=== PATIENT | male | born 1945 | race Caucasian/White ===

== ENCOUNTER → 2023-09-30 | Outpatient (CLI) | payer MEDICARE ==
[2023-09-30 18:44] LABS: Basophils # (A) 0.06 X 10*3/uL (0.00-0.10); Basophils % (A) 0.9 %; Eosinophils # (A) 0.16 X 10*3/uL (0.04-0.35); Eosinophils % (A) 2.3 %; HCT 37.4 % (39.6-50.0); HGB 12.7 g/dL (13.0-17.0); Lymphocytes # (A) 1.38 X 10*3/uL (0.90-5.00); Lymphocytes % (A) 19.8 %; MCH 30.2 pg (27.0-32.0); Mean Platelet Volume 9.7 FL (9.5-12.2); Monocytes # (A) 0.64 X 10*3/uL (0.20-1.00); Monocytes % (A) 9.2 %; NRBC Per 100 WBC 0 X 10*3/uL (0.00-0.01); Neutrophils # (A) 4.72 X 10*3/uL (1.80-7.70); Neutrophils % (A) 67.5 %; Platelet Count 262 X 10*3/uL (140-440); WBC 6.98 X 10*3/uL (4.50-10.00)
[2023-09-30 19:32] LABS: Erythrocyte Sedimentation Rate 10 mm/Hr (0-20)
== END | disposition home or self-care (01) ==
LOC: LABWHC1 10:07
PROVIDERS: ATTEND Ophthalmology
DX: H34.8111 Central retinal vein occlusion, right eye, with retinal neovascularization (principal)
CPT/HCPCS: 36415; 85025; 85652

== ENCOUNTER → 2023-12-09 | Outpatient (CLI) | payer MEDICARE ==
--- NOTE | 2023-12-09 19:17 | US ---
EXAMINATION TYPE: US carotid duplex BILAT DATE OF EXAM: 12/09/2023 COMPARISON: NONE CLINICAL INDICATION: Male, 78 years old with history of I63.9 STROKE; Right visual disturbance TECHNIQUE: Carotid duplex ultrasound examination. Indirect Doppler criteria was utilized. FINDINGS: EXAM MEASUREMENTS: RIGHT: Peak Systolic Velocity (PSV) cm/sec ----- Right CCA: 106 ----- Right ICA: 141 ----- Right ECA: 152 ICA/CCA ratio: 1.33 RIGHT: End Diastole cm/sec ----- Right CCA: 18.0 ----- Right ICA: 15.4 ----- Right ECA: 15.6 LEFT: Peak Systolic Velocity (PSV) cm/sec ----- Left CCA: 115 ----- Left ICA: 141 ----- Left ECA: 155 ICA/CCA ratio: 1.23 LEFT: End Diastole cm/sec ----- Left CCA: 12.3 ----- Left ICA: 26.4 ----- Left ECA: 10.7 VERTEBRALS (direction of flow): Right Vertebral: Antegrade Left Vertebral: Antegrade Rhythm: Normal MACHINE SAND MIXER NOTES: Moderate plaque bilateral bifurcations. 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 Criteria for Assigning % of Stenosis / Diameter reduction (Estimation based on the indirect measurements of the internal carotid artery velocities (ICA PSV). 1. Normal (no stenosis)=ICA PSV < 125 cm/s: ratio < 2.0: ICA EDV<40 cm/s. 2. Less than 50% stenosis=ICA PSV < 125 cm/s: ratio < 2.0: ICA EDV<40 cm/s. 3. 50 to 69% stenosis=ICA PSV of 125 to 230 cm/s: ration 2.0 ? 4.0: ICA EDV 40-100 cm/s. 4. Greater than 70% stenosis to near occlusion= ICA PSV > 230 cm/s: ratio > 4.0: ICA EDV > 100 cm/s. 5. Near occlusion= ICA PSV velocities may be low or undetectable: variable ratio and ICA EDV. 6. Total occlusion=unable to detect flow.
== END | disposition home or self-care (01) ==
LOC: RADUSWWP 09:48
PROVIDERS: ATTEND Internal Medicine Geriatric Medicine
DX: I65.23 Occlusion and stenosis of bilateral carotid arteries (principal)
CPT/HCPCS: 93880

== ENCOUNTER 2024-06-22 08:56 | Inpatient (IN) | payer MEDICARE ==
[2024-06-22] MEDS: ASPIRIN 81 MG PO STA (09:28)
--- NOTE | 2024-06-22 09:29 | ED ---
General Adult HPI - General Chief complaint: Neuro Symptoms/Deficit Stated complaint: Poss Stroke Time Seen by Provider: 06/22/24 09:07 Source: patient Mode of arrival: ambulatory Limitations: no limitations - History of Present Illness Initial comments: Dictation was produced using Beta[employer] dictation software. please excuse any grammatical, word or spelling errors. Chief Complaint: 78-year-old male presents emergency department with strokelike symptoms History of Present Illness: Patient 78-year-old male presents with strokelike symptoms. He had sputtering symptoms since yesterday. Initially began in the morning however improved throughout the day. At 9 PM his symptoms recurred. States that he is having difficulty walking, slurred speech and right facial droop. 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 Denies any headache. No chest pain. No shortness of breath. The ROS documented in this emergency department record has been reviewed and confirmed by me. Those systems with pertinent positive or negative responses have been documented in the HPI. All other systems are other negative and/or noncontributory. - Related Data Home Medications Medication Instructions Recorded Confirmed Ascorbic Acid [Vitamin C] 500 mg PO DAILY 06/22/24 06/22/24 Aspirin EC [Ecotrin Low Dose] 81 mg PO DAILY 06/22/24 06/22/24 Montelukast [Singulair] 10 mg PO DAILY 06/22/24 06/22/24 Multivitamins, Thera [Multivitamin 1 tab PO DAILY 06/22/24 06/22/24 (formulary)] Rosuvastatin [Crestor] 20 mg PO DAILY 06/22/24 06/22/24 Vit C/E/Zn/Coppr/Lutein/Zeaxan 1 cap PO BID 06/22/24 06/22/24 [Preservision Areds 2 Softgel] Allergies Allergy/AdvReac Type Severity Reaction Status Date / Time No Known Allergies Allergy Verified 06/22/24 09:55 Review of Systems ROS Statement: Those systems with pertinent positive or pertinent negative responses have been documented in the HPI. ROS Other: All systems not noted in ROS Statement are negative. 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 Cardiovascular: Heart regular rate and rhythm Chest: Able to complete full sentences, no retractions, no tachypnea Abdomen: abdomen soft, non-tender, non-distended, no organomegaly Musculoskeletal: Pulses present and equal in all extremities, no peripheral edema Motor: no focal deficits noted Neurological: Flattening of the right nasolabial fold, slight word finding difficulties slurred speech. Drift to the right lower extremity Skin: Intact with no visualized rashes Psych: Normal affect and mood Limitations: no limitations Course Vital Signs 06/22/24 06/22/24 08:58 09:36 Temperature 97.6 F Pulse Rate 89 97 Respiratory 18 18 Rate Blood Pressure 152/80 118/88 O2 Sat by Pulse 97 96 Oximetry EKG Findings - EKG Comments: EKG Findings:: My EKG interpretation: Ventricular rate 86, sinus rhythm, TX 150, cures 93, QTc 386. No TX prolongation, no QTC prolongation, no ST or T-wave changes noted. Overall, this EKG is unremarkable Medical Decision Making - Medical Decision Making Was pt. sent in by a medical professional or institution (TONIA Polanco, DIGITAL ACCOUNT SUPERVISOR, urgent care, hospital, or snf...) When possible be specific @ -No Did you speak to anyone other than the patient for history (EMS, parent, family, police, friend...)? What history was obtained from this source @ -Some history obtained family at the bedside Did you review nursing and triage notes (agree or disagree)? Why? @ -I reviewed and agree with nursing and triage notes Were old charts reviewed (outside hosp., previous admission, EMS record, old EKG, old radiological studies, urgent care reports/EKG's, snf records)? Report findings @ -No old charts were reviewed Differential Diagnosis (chest pain, altered mental status, abdominal pain women, abdominal pain men, vaginal bleeding, musculoskeletal, weakness, fever, dyspnea, syncope, headache, dizziness, GI bleed, back pain, seizure, CVA, palpatations, mental health)? @ - Differential CVA: Ischemic stroke, hemorrhagic stroke, brain tumor, atypical migraine, Wernicke's encephalopathy, seizure, multiple sclerosis, meningitis, encephalitis, hypoglycemia, Guillain-Obrien, electrolytes disturbance, myasthenia gravis.... Th is is not meant to be an all-inclusive list EKG interpreted by me (3pts min.). @ -See above X-rays interpreted by me (1pt min.). @ -Chest x-ray is nonacute CT interpreted by me (1pt min.). @ -CT scan the brain shows no acute processes. CT angiography shows no large vessel occlusion U/S interpreted by me (1pt. min.). @ -None done What testing was considered but not performed or refused? (CT, X-rays, U/S, labs)? Why? @ -None What meds were considered but not given or refused? Why? @ -Thrombolytics were considered however patient outside the window for safe administration Was smoking cessation discussed for >3mins.? @ -No Were there social determinants of health that impacted care today? How? (Homelessness, low income, unemployed, alcoholism, drug addiction, transportation, low edu. Level, literacy, decrease access to med. care, custodial, rehab)? @ -No Was there de-escalation of care discussed even if they declined (Discuss DNR or withdrawal of care, Hospice)? DNR status @ -No What co-morbidities impacted this encounter? (DM, HTN, Smoking, COPD, CAD, Cancer, CVA, ARF, Chemo, Hep., AIDS, mental health diagnosis, sleep apnea, morbid obesity)? @ -History of atherosclerotic vascular disease Was patient admitted / discharged? Hospital course, mention meds given and route, prescriptions, significant lab abnormalities, going to OR and other pertinent info. @ -70-year-old male presents with acute strokelike symptoms. Patient outside the window for aggressive management. Vital signs are stable. Laboratory evaluation within acceptable limits. Imaging studies are negative. Symptoms are suggestive of CVA. Gave patient given aspirin will be admitted with consultation to neurology. Case discussed with hospitalist for admission Did you discuss the management of the patient with other professionals (professionals i.e. , PA, DIGITAL ACCOUNT SUPERVISOR, lab, RT, psych nurse, psychiatric social worker, child welfare specialist, teacher, community reinvestment act officer, heel caser)? Give summary @ -See above Was critical care preformed (if so, how long)? @ -No Undiagnosed new problem with uncertain prognosis? @ -No Drug Therapy requiring intensive monitoring for toxicity (Heparin, Nitro, Insulin, Cardizem)? @ -No Were any procedures done? @ -No Diagnosis/symptom? Acute, or Chronic, or Acute on Chronic? Uncomplicated (without systemic symptoms) or Complicated (systemic symptoms)? @ -CVA Side effects of treatment? @ -No Exacerbation, Progression, or Severe Exacerbation? @ -No Poses a threat to life or bodily function? How? (Chest pain, [place], [place], pneumonia, PE, COPD, DKA, ARF, appy, cholecystitis, CVA, Diverticulitis, Homicidal, Suicidal, threat to staff... and all critical care pts) @ -yes - Lab Data Result diagrams: 06/22/24 09:35 06/22/24 09:35 Lab Results 06/22/24 06/22/24 06/22/24 Range/Units 09:35 09:35 09:35 WBC 7.6 (3.8-10.6) k/uL RBC 4.68 (4.30-5.90) m/uL Hgb 14.3 (13.0-17.5) gm/dL Hct 43.7 (39.0-53.0) % MCV 93.5 (80.0-100.0) fL MCH 30.6 (25.0-35.0) pg MCHC 32.8 (31.0-37.0) g/dL RDW 13.6 (11.5-15.5) % Plt Count 299 (150-450) k/uL MPV 7.1 Neutrophils % 67 % Lymphocytes % 21 % Monocytes % 5 % Eosinophils % 5 % Basophils % 1 % Neutrophils # 5.0 (1.3-7.7) k/uL Lymphocytes # 1.6 (1.0-4.8) k/uL Monocytes # 0.4 (0-1.0) k/uL Eosinophils # 0.4 (0-0.7) k/uL Basophils # 0.0 (0-0.2) k/uL PT 10.7 (10.0-12.5) sec INR 1.0 (<1.2) APTT 23.7 (22.0-30.0) sec Sodium 141 (137-145) mmol/L Potassium 4.8 (3.5-5.1) mmol/L Chloride 108 H (98-107) mmol/L Carbon Dioxide 23 (22-30) mmol/L Anion Gap 10 mmol/L BUN 26 H (9-20) mg/dL Creatinine 1.33 H (0.66-1.25) mg/dL Est GFR (CKD-EPI)AfAm 59 (>60 ml/min/1.73 sqM) Est GFR (CKD-EPI)NonAf 51 (>60 ml/min/1.73 sqM) Glucose 101 H (74-99) mg/dL Calcium 9.6 (8.4-10.2) mg/dL Total Bilirubin 1.2 (0.2-1.3) mg/dL AST 32 (17-59) U/L ALT 24 (4-49) U/L Alkaline Phosphatase 59 (38-126) U/L Creatine Kinase 142 (55-170) U/L Troponin I (0.000-0.034) ng/mL Total Protein 7.6 (6.3-8.2) g/dL Albumin 4.7 (3.5-5.0) g/dL 06/22/24 Range/Units 09:35 WBC (3.8-10.6) k/uL RBC (4.30-5.90) m/uL Hgb (13.0-17.5) gm/dL Hct (39.0-53.0) % MCV (80.0-100.0) fL MCH (25.0-35.0) pg MCHC (31.0-37.0) g/dL RDW (11.5-15.5) % Plt Count (150-450) k/uL MPV Neutrophils % % Lymphocytes % % Monocytes % % Eosinophils % % Basophils % % Neutrophils # (1.3-7.7) k/uL Lymphocytes # (1.0-4.8) k/uL Monocytes # (0-1.0) k/uL Eosinophils # (0-0.7) k/uL Basophils # (0-0.2) k/uL PT (10.0-12.5) sec INR (<1.2) APTT (22.0-30.0) sec Sodium (137-145) mmol/L Potassium (3.5-5.1) mmol/L Chloride (98-107) mmol/L Carbon Dioxide (22-30) mmol/L Anion Gap mmol/L BUN (9-20) mg/dL Creatinine (0.66-1.25) mg/dL Est GFR (CKD-EPI)AfAm (>60 ml/min/1.73 sqM) Est GFR (CKD-EPI)NonAf (>60 ml/min/1.73 sqM) Glucose (74-99) mg/dL Calcium (8.4-10.2) mg/dL Total Bilirubin (0.2-1.3) mg/dL AST (17-59) U/L ALT (4-49) U/L Alkaline Phosphatase (38-126) U/L Creatine Kinase (55-170) U/L Troponin I <0.012 (0.000-0.034) ng/mL Total Protein (6.3-8.2) g/dL Albumin (3.5-5.0) g/dL Disposition Clinical Impression: Cerebrovascular accident (CVA) Disposition: ADMITTED IP TO THIS HOSP Condition: Fair Referrals: Anil Elizabeth MD [Primary Care Provider] - 1-2 days Decision Time: 11:43
[2024-06-22] MEDS: SODIUM CHLORIDE 0.9% 500 ML 500 ML IV STA (09:30)
[2024-06-22 09:40] LABS: Basophils % (A) 1 %; Eosinophils # (A) 0.4 k/uL (0-0.7); Eosinophils % (A) 5 %; HCT 43.7 % (39.0-53.0); HGB 14.3 gm/dL (13.0-17.5); Lymphocytes # (A) 1.6 k/uL (1.0-4.8); Lymphocytes % (A) 21 %; MCH 30.6 pg (25.0-35.0); MCHC 32.8 g/dL (31.0-37.0); MCV 93.5 fL (80.0-100.0); Mean Platelet Volume 7.1; Monocytes # (A) 0.4 k/uL (0-1.0); Monocytes % (A) 5 %; Neutrophils % (A) 67 %; Platelet Count 299 k/uL (150-450); RBC 4.68 m/uL (4.30-5.90); RDW 13.6 % (11.5-15.5); WBC 7.6 k/uL (3.8-10.6)
[2024-06-22 09:51] LABS: Partial Thromboplastin Time 23.7 sec (22.0-30.0); Prothrombin Time 10.7 sec (10.0-12.5)
[2024-06-22 09:52] LABS: ALT 24 U/L (4-49); African American GFR (CKD) 59 (>60 ml/min/1.73 sqM); Albumin 4.7 g/dL (3.5-5.0); Anion Gap 10 mmol/L; Blood Urea Nitrogen 26 mg/dL (9-20); Calcium 9.6 mg/dL (8.4-10.2); Carbon Dioxide 23 mmol/L (22-30); Chloride 108 mmol/L (98-107); Creatine Kinase 142 U/L (55-170); Glucose 101 mg/dL (74-99); Non-African American GFR(CKD) 51 (>60 ml/min/1.73 sqM); Sodium 141 mmol/L (137-145); Total Bilirubin 1.2 mg/dL (0.2-1.3); Total Protein 7.6 g/dL (6.3-8.2)
[2024-06-22 09:55] LABS: AST 32 U/L (17-59); Alkaline Phosphatase 59 U/L (38-126); Potassium 4.8 mmol/L (3.5-5.1)
--- NOTE | 2024-06-22 10:11 | CT ---
EXAMINATION TYPE: CT brain wo con CT DLP: 1227.4 mGycm, Automated exposure control for dose reduction was used. DATE OF EXAM: 06/22/2024 10:06 AM COMPARISON: None. CLINICAL INDICATION:Male, 78 years old with history of Neuro deficit, acute, stroke suspected, Slur[place] d speech since 06/21/2024 at 2100 TECHNIQUE: Brain: Multiple axial CT images of the brain were obtained without IV contrast. . Coronal and sagitta l reformats reviewed. FINDINGS: Brain: Extra-axial spaces: No abnormal extra-axial fluid collections. Ventricular system: Within normal limits Cerebral parenchyma: No acute intraparenchymal hemorrhage or mass effect. The carr-white junction is well differentiated. Scattered hypoattenuating areas are seen within the periventricular white matte r. Cerebellum: Unremarkable. Mass effect: No evidence of midline shift. Intracranial vasculature: Atherosclerotic calcifications of the intracranial vessels. Soft tissues: Normal. Calvarium/osseous structures: No depressed skull fracture. Paranasal sinuses and mastoid air cells: Mastoid air cells are clear. Mild mucosal thickening of the ethmoid sinuses. Visualized orbits: Senile calcific scleral plaques are present. IMPRESSION: 1. No acute intracranial process. 2. Nonspecific white matter changes, likely secondary to chronic small vessel ischemic disease. [facility], , 06/22/2024 10:09 AM
--- NOTE | 2024-06-22 10:53 | CT ---
EXAMINATION TYPE: CT angio head neck CT DLP: 1688.7 mGycm, Automated exposure control for dose reduction was used. DATE OF EXAM: 06/22/2024 10:34 AM COMPARISON: CT brain of same date. CLINICAL INDICATION:Male, 78 years old with history of Neuro deficit, acute, stroke suspected; PHH, N euro deficit, acute, stroke suspected TECHNIQUE: Axially acquired helical CT angiogram of the head and neck was obtained with contrast util izing 75 cc of Isovue-370 administered intravenously. Axial images are supplemented with 3D reconstru ctions which were post-processed at an independent workstation. NASCET criteria used. FINDINGS: CTA HEAD: No evidence of acute intracranial hemorrhage, mass effect, or midline shift. The ventricles, sulci, a nd cisterns are unremarkable. The visualized portions of the internal carotid arteries, middle cerebral arteries, anterior cerebral arteries, and posterior cerebral arteries are patent. origin of left LIVE GAMES DEALER. The basilar and vertebral arteries are patent. CTA NECK: Right Carotid System: The common carotid artery and external carotid artery are patent. Moderate calcified plaque at the ca rotid bifurcation extending into the proximal internal carotid artery. Approximately 50% stenosis sly ntified within the proximal internal carotid artery secondary to calcified plaque. The remaining por tions of the internal carotid artery demonstrate normal size without significant narrowing. Left Carotid System: The common carotid artery and external carotid artery are patent. The carotid bifurcation demonstrate s no evidence of hemodynamically significant stenosis. Mild calcified and noncalcified plaque within the carotid bifurcation and left proximal internal carotid artery. No significant stenosis. The remai servando portions of the internal carotid artery demonstrate normal size without significant narrowing. Vertebral arteries are patent without evidence hemodynamically significant stenosis. Left vertebral a rtery is dominant. There is a three-vessel aortic arch. The origins of the great vessels are patent. No evidence of hemo dynamically significant stenosis. IMPRESSION: 1. No evidence of dissection of the cervical internal carotid arteries or vertebral arteries. Approxi mately 50% stenosis within the proximal right internal carotid artery secondary to calcified plaque. No significant stenosis of the left internal carotid artery. 2. No evidence of high-grade stenosis or intracranial aneurysm. [facility], , 06/22/2024 10:50 AM
--- NOTE | 2024-06-22 11:17 | XR ---
EXAMINATION TYPE: XR chest 2V DATE OF EXAM: 06/22/2024 COMPARISON: None HISTORY: 78-year-old male confusion, altered mental status TECHNIQUE: AP and lateral views FINDINGS: Heart normal size. Aorta and pulmonary vasculature within normal limits. Opacity. No other consolidat ion or pleural effusion. Mild hyperinflation. IMPRESSION: COPD. Some focal medial right basilar atelectasis versus infiltrate. Correlate with symptoms. [facility], , 06/22/2024 11:15 AM
[2024-06-22] MEDS ORDERED: NALOXONE 0.4 MG/ML 1 ML VIAL IV PRN (11:40)
[2024-06-22] MEDS: SODIUM CHLORIDE 0.9% 1,000 ML IV SCH (12:06)
--- NOTE | 2024-06-22 15:59 | US ---
EXAMINATION TYPE: US carotid duplex BILAT DATE OF EXAM: 06/22/2024 COMPARISON: 12/09/2023 CLINICAL INDICATION: Male, 78 years old with history of CVA TECHNIQUE: Grayscale, color Doppler and spectral Doppler evaluation of the bilateral carotid systems and vertebral arteries. Indirect Doppler criteria was utilized. FINDINGS: EXAM MEASUREMENTS: RIGHT: Peak Systolic Velocity (PSV) cm/sec ----- Right CCA: 104 ----- Right ICA: 127 ----- Right ECA: 134 ICA/CCA ratio: 1.2 RIGHT: End Diastole cm/sec ----- Right CCA: 11 ----- Right ICA: 18.9 ----- Right ECA: 8.2 LEFT: Peak Systolic Velocity (PSV) cm/sec ----- Left CCA: 109 ----- Left ICA: 147 ----- Left ECA: 88.1 ICA/CCA ratio: 1.3 LEFT: End Diastole cm/sec ----- Left CCA: 17.2 ----- Left ICA: 26.3 ----- Left ECA: 0 VERTEBRALS (direction of flow): Right Vertebral: Antegrade Left Vertebral: Antegrade Rhythm: Normal FACTORY MAINTENANCE MANAGER NOTES: No significant stenosis seen There is mild to moderate atherosclerotic change at the bilateral carotid bifurcations. IMPRESSION: No hemodynamically significant internal carotid artery stenosis on either side. Criteria for Assigning % of Stenosis / Diameter reduction (Estimation based on the indirect measurements of the internal carotid artery velocities (ICA PSV). 1. Normal (no stenosis)=ICA PSV < 125 cm/s: ratio < 2.0: ICA EDV<40 cm/s. 2. Less than 50% stenosis=ICA PSV < 125 cm/s: ratio < 2.0: ICA EDV<40 cm/s. 3. 50 to 69% stenosis=ICA PSV of 125 to 230 cm/s: ration 2.0 ? 4.0: ICA EDV 40-100 cm/s. 4. Greater than 70% stenosis to near occlusion= ICA PSV > 230 cm/s: ratio > 4.0: ICA EDV > 100 cm/s. 5. Near occlusion= ICA PSV velocities may be low or undetectable: variable ratio and ICA EDV. 6. Total occlusion=unable to detect flow. [facility], , 06/22/2024 3:57 PM
[2024-06-22] MEDS: VIT A,C & E-LUTEIN-MINERALS 1 EACH TAB PO SCH (21:43)
--- NOTE | 2024-06-22 22:41 | P.HPIM ---
History of Present Illness H&P Date: 06/22/24 HISTORY OF PRESENT ILLNESS: 78-year-old with active medical history of hypertension, hyperlipidemia, BPH, previous history of TIA, history of mild PAD with left internal carotid stenosis in the past, history of chronic edema, chronic arthralgia and arthritis who has not been hospitalized for a long time but presented to the emergency department at [facility] today 06/22/2024 with strokelike symptoms apparently started the day before around 9:00 in the evening when he noticed to have slight weakness in the right leg more than the right upper extremity with slight droopy face and slurred speech with mild expressive aphasia he had difficulty walking at the time with the current symptoms he ignored until the morning today 06/22/2024 when he finally decided to come to the emergency department where was seen and evaluated continue to have significant weakness in the right side with mild slurred speech no confusion. At the time was seen his Glascow score was m ildly elevated but patient already passed the time for possible use tPA emergency decided to consult neurology admit patient to the hospital start Plavix and continue to control blood pressure, cholesterol, blood sugar and do neuroexam neurocheck regularly will need an MRI of the brain more specification of the area of the stroke is initially CAT scan of the brain did not show any area of concern but nonspecific white matter changes secondary to chronic small vessel ischemic change. EKG showed sinus rhythm with nonspecific ST depression with pulse running at 86 bpm with no sign of A-fib, CT angiogram of the neck shows no evidence of dissection of the cervical internal carotid artery or vert ebral artery approximately 50% blockage along the right proximal internal carotid secondary to calcification plaque. Atheroma no finding consistent with intracranial aneurysm at this point. Patient be hospitalized, will consult neurology, MRI of the brain, neuroexam every 2 hours and try to control blood pressure blood sugar along closely very well. REVIEW OF SYSTEMS: CONSTITUTIONAL: Well-developed no acute respiratory distress. EYES: No icterus sclerae, no conjunctivitis. Slightly droopy face to the right side. EARS, NOSE, MOUTH, THROAT, and FACE: No sore throat, lymphadenopathy, carotid bruits or deformity. RESPIRATORY: No SOB cough or wheezes. CARDIOVASCULAR: No CP, Palpitation, PND, Orthopnea, or angina. GASTROINTESTINAL: No Abd pain, Nausea or vomiting, no Diarrhea or constipation, No GI Bleed, no distention or masses. GENITOURINARY: Negative for Hematuria or UTI, no kidney stones. Mild BPH symptoms with incontinence. INTEGUMENT/BREAST: Negative for any muscular injury with mild osteoarthritis.. HEMATOLOGIC/LYMPHATIC: Negative for bleed or purpura. MUSCULOSKELTAL: Negative for Myalgia or arthralgia. NEURLOGICAL: No LOC, Sz or syncope, blurred vision dizziness or abnormality.. Positive weakness in the right side with slight droopy face and slurred speech. BEHAVIORAL/PSYCH: Negative. ENDOCRINE: Negative. PHYSICAL EXAMINATION: General Appearance: Alert, cooperative, no distress, appears stated age. Neck HEENT: Supple, no lymphadenopathy, no thyroid enlargement, no carotid bruits. Lungs: Clear to auscultation without crackles or wheezes no rhonchi, no deformity. Chest Wall: Chest wall normal expansion with deep inspiration no tenderness and no deformity was found on exam, no costochondral pain or discomfort. Heart: Regular rate and rhythm, S1, S2 normal, no murmur, rub or gallop. Back: Symmetric, no curvature, ROM normal, no CVA tenderness. Abdomen: Soft, non-tender, bowel sounds active all four quadrants, no masses, no organomegaly. Extremities: Extremities normal, atraumatic, no cyanosis or edema. Pulses: 2+ and symmetric. Skin: Skin color, texture, tugor normal, no rashes or lesions. Neurologic: Alert oriented with no confusion, cranial nerve II to XII intact with slight droopy face to the right side. Slight lack of sensation and right- sided weakness in the right leg compared to the left side significant weakness in the right upper extremity compared to left side as well. ASSESSMENT AND PLAN: _Acute/subacute stroke not able to find the time of CAT scan of the brain, MRI of the brain will be ordered also patient seen neurology, carotid ultrasound and echocardiogram to exclude any possibility atrial septal defect, thrombus in the mitral valve or any other abnormality can explain the symptoms. _Severe weakness in the right side from stroke CAT scan is not a clear patient major event will refer patient to see neurology and patient be going for an MRI of the brain. _Hyperlipidemia: Back on atorvastatin 40 mg a day. _Hypertension: Blood pressure is mildly elevated was not on any medication and an outpatient will consider to add smaller dose of ARB. _Carotid stenosis especially the right side is still plaque of cholesterol around 50 percentile does not require any intervention but conservative management. _BPH: To avoid any urinary retention patient might require alpha-brian. _Abnormal balance and gait: Will require PT and OT to improve his mobility fast. _GI prophylaxis: Patient be on pantoprazole 40 mg a day. _DVT prophylaxis: Early mobilization knee-high ABISAI hose on subcutaneous Lovenox to be done. CODE STATUS: Full code. Admit patient to the inpatient service for more than 2 night stay. Past Medical History Past Medical History: Hyperlipidemia Additional Past Medical History / Comment(s): 69% blockage in ICA, Past Surgical History: Hernia Repair Past Psychological History: No Psychological Hx Reported Smoking Status: Never smoker Past Alcohol Use History: None Reported Past Drug Use History: None Reported Medications and Allergies Home Medications Medication Instructions Recorded Confirmed Type Ascorbic Acid [Vitamin C] 500 mg PO DAILY 06/22/24 06/22/24 History Aspirin EC [Ecotrin Low Dose] 81 mg PO DAILY 06/22/24 06/22/24 History Montelukast [Singulair] 10 mg PO DAILY 06/22/24 06/22/24 History Multivitamins, Thera [Multivitamin 1 tab PO DAILY 06/22/24 06/22/24 History (formulary)] Rosuvastatin [Crestor] 20 mg PO DAILY 06/22/24 06/22/24 History Vit C/E/Zn/Coppr/Lutein/Zeaxan 1 cap PO BID 06/22/24 06/22/24 History [Preservision Areds 2 Softgel] Allergies Allergy/AdvReac Type Severity Reaction Status Date / Time No Known Allergies Allergy Verified 06/22/24 09:55 Physical Exam Vitals: Vital Signs Temp Pulse Resp BP Pulse Ox 06/22/24 12:50 93 18 131/72 98 06/22/24 12:04 87 18 126/70 97 06/22/24 12:00 86 16 129/82 96 06/22/24 11:00 85 11 L 121/74 96 06/22/24 09:36 97 18 118/88 96 06/22/24 08:58 97.6 F 89 18 152/80 97 Intake and Output 06/21/24 06/22/24 06/22/24 22:59 06:59 14:59 Other: Weight 85.82 kg Results CBC & Chem 7: 06/22/24 09:35 06/22/24 09:35 Labs: Abnormal Lab Results - Last 24 Hours (Table) 06/22/24 Range/Units 09:35 Chloride 108 H (98-107) mmol/L BUN 26 H (9-20) mg/dL Creatinine 1.33 H (0.66-1.25) mg/dL Glucose 101 H (74-99) mg/dL
[2024-06-23 07:01] LABS: HCT 38.3 % (39.0-53.0); HGB 12.7 gm/dL (13.0-17.5); MCH 31.1 pg (25.0-35.0); MCV 94.3 fL (80.0-100.0); Mean Platelet Volume 6.8; Platelet Count 278 k/uL (150-450); RBC 4.06 m/uL (4.30-5.90); RDW 13.5 % (11.5-15.5); WBC 7.1 k/uL (3.8-10.6)
[2024-06-23 07:13] LABS: ALT 18 U/L (4-49); AST 21 U/L (17-59); African American GFR (CKD) 62 (>60 ml/min/1.73 sqM); Albumin 3.7 g/dL (3.5-5.0); Alkaline Phosphatase 54 U/L (38-126); Anion Gap 5 mmol/L; Blood Urea Nitrogen 20 mg/dL (9-20); Calcium 9.1 mg/dL (8.4-10.2); Carbon Dioxide 26 mmol/L (22-30); Chloride 110 mmol/L (98-107); Glucose 88 mg/dL (74-99); Non-African American GFR(CKD) 54 (>60 ml/min/1.73 sqM); Potassium 4.5 mmol/L (3.5-5.1); Sodium 141 mmol/L (137-145); Total Bilirubin 0.8 mg/dL (0.2-1.3)
[2024-06-23] MEDS: ASCORBIC ACID 500 MG TAB PO SCH (08:54)
[2024-06-23] MEDS: ATORVASTATIN 40 MG TAB PO SCH (08:55)
[2024-06-23] MEDS: ASPIRIN 81 MG PO SCH (08:55)
[2024-06-23] MEDS: MONTELUKAST 10 MG TAB PO SCH (08:55)
[2024-06-23] MEDS: MULTIVITAMINS, THERA 1 EACH TAB PO SCH (08:55)
[2024-06-23] MEDS: CLOPIDOGREL 75 MG TAB PO SCH (08:55)
--- NOTE | 2024-06-23 12:54 | CA ---
Transthoracic Echo Report Name: Aristides Weldon Age: 79 Gender: M : 1945 Exam Date: 06/23/2024 10:17 Exam Location: [facility] Ht (in): 70 Wt (lb): 189 Ordering Physician: Anil Elizabeth MD Attending/Referring Phys: [employer] Marylou Saldivar RDCS Procedure CPT: Indications: lvfunction Cardiac Hx: Technical Quality: Fair Contrast 1: Total Dose (mL): Contrast 2: Total Dose (mL): MEASUREMENTS (Male / Female) Normal Values 2D ECHO LV Diastolic Diameter PLAX 5.0 cm 4.2 - 5.9 / 3.9 - 5.3 cm LV Systolic Diameter PLAX 3.5 cm IVS Diastolic Thickness 0.9 cm 0.6 - 1.0 / 0.6 - 0.9 cm LVPW Diastolic Thickness 1.0 cm 0.6 - 1.0 / 0.6 - 0.9 cm LV Relative Wall Thickness 0.4 LVOT Diameter 2.2 cm LV Diastolic Volume MOD BP 125.7 cm??? 67 - 155 / 56 - 104 cm??? LV Systolic Volume MOD BP 50.0 cm??? 22 - 58 / 19 - 49 cm??? LV Ejection Fraction MOD BP 60.3 % >= 55 % LV Cardiac Index MOD BP 2888.9 cm???/min???m??? LV Diastolic Volume MOD 4C 138.8 cm??? LV Systolic Volume MOD 4C 49.9 cm??? LV Ejection Fraction MOD 4C 64.1 % LV Cardiac Index MOD 4C 3388.5 cm???/min???m??? LV Diastolic Length 4C 8.2 cm LV Systolic Length 4C 6.0 cm LV Diastolic Volume MOD 2C 113.5 cm??? LV Systolic Volume MOD 2C 48.7 cm??? LV Ejection Fraction MOD 2C 57.1 % LV Cardiac Index MOD 2C 2470.8 cm???/min???m??? LV Diastolic Length 2C 8.2 cm LV Systolic Length 2C 6.2 cm LA Volume 53.9 cm??? 18 - 58 / 22 - 52 cm??? LA Volume Index 26.0 cm???/m??? 16 - 28 cm???/m??? Ascending Aorta Diameter 3.7 cm DOPPLER AV Peak Velocity 132.0 cm/s AV Peak Gradient 7.0 mmHg AV Mean Velocity 92.1 cm/s AV Mean Gradient 3.8 mmHg AV Velocity Time Integral 26.1 cm LVOT Peak Velocity 105.1 cm/s LVOT Peak Gradient 4.4 mmHg LVOT Velocity Time Integral 22.4 cm LVOT Stroke Volume 82.2 cm??? LVOT Stroke Volume Index 40.3 ml/m??? LVOT Cardiac Index 3132.2 cm???/min???m??? AV Area Cont Eq vti 3.1 cm??? AV Area Cont Eq pk 2.9 cm??? MV Area PHT 3.5 cm??? Mitral E Point Velocity 38.6 cm/s Mitral A Point Velocity 73.2 cm/s Mitral E to A Ratio 0.5 MV Deceleration Time 213.8 ms PV Peak Velocity 81.8 cm/s PV Peak Gradient 2.7 mmHg FINDINGS Left Ventricle Left ventricular ejection fraction is estimated at 55-60 %. Left ventricular cavity size normal. Left ventricular wall thickness normal. No obvious regional wall motion abnormalities. Right Ventricle Normal right ventricular size with normal function. Unable to estimate the right ventricular systolic pressure. Right Atrium Normal right atrial size. Left Atrium Normal left atrial size. Mitral Valve Structurally normal mitral valve. No evidence for mitral valve prolapse. No mitral stenosis. Trace mitral regurgitation. Aortic Valve Trileaflet aortic valve. No aortic stenosis. Trace aortic regurgitation. Tricuspid Valve Structurally normal tricuspid valve. No tricuspid stenosis. Trace tricuspid regurgitation. Pulmonic Valve Structurally normal pulmonic valve. No pulmonic stenosis. No pulmonic regurgitation. Pericardium No pericardial effusion. Prominent epicardial fat. Aorta Normal size aortic root and proximal ascending aorta. CONCLUSIONS Normal LV size and systolic function. Minimal mitral and tricuspid regurgitation. Trivial aortic insufficiency. No pericardial effusion. Probable fat pad. No pulmonary hypertension Previewed by: Dr. Veronica Pascual MD (Electronically Signed) Final Date: 23 June 2024 12:53
--- NOTE | 2024-06-23 16:10 | P.CNNES ---
History of Present Illness Consult date: 06/23/24 Requesting physician: Hira Mclean Reason for Consult: stroke symptoms History of Present Illness: This is a 79-year-old gentleman who presented emergency department on 06/22/2024 because of slurred speech off balance with right leg weakness. Patient stated that his symptoms began at nighttime on 06/21/2024 resolved did happen again further overnight. Speech is continues to be slurred. He is on aspirin 81 mg as well as statin. He states that he was told he had a stroke that affected the vision over the right eye affecting the right retinal artery unsure of the timeframe that this happened but thinks maybe 12 months ago but he does not recall he had any symptoms but when he followed up with the rib sawyer he was told that the retinal artery on the right eye was affected. Denies any history of A-fib. Some of the workup during this hospital visit consisted of: Creatinine is 1.33. I reviewed the rest of the lab workup CT of the head is reported as no acute intracranial process. Nonspecific white matter changes, likely secondary due to chronic small vessel ischemic disease. I personally reviewed the CT and I agree with the report CT angiography of the head and neck is reported as no evidence of dissection of cervical internal carotid artery or vertebral artery. Approximately 50% stenosi s within the proximal right internal carotid artery secondary due to calcified plaque. No significant stenosis of the left internal carotid artery. No evidence of high-grade stenosis or intracranial aneurysm Carotid duplex is reported as no hemodynamically significant internal carotid artery stenosis on either side. 2D echo was reported as normal left ventricular size and systolic function. Min imal mitral and tricuspid regurgitation. Trivial aortic insufficiency. No pericardial effusion. Probable fat pad. No pulmonary hypertension Review of Systems The positive and negative as per HPI. Past Medical History Past Medical History: Hyperlipidemia Additional Past Medical History / Comment(s): 69% blockage in ICA, Past Surgical History: Hernia Repair Past Psychological History: No Psychological Hx Reported Smoking Status: Never smoker Past Alcohol Use History: None Reported Past Drug Use History: None Reported Medications and Allergies Home Medications Medication Instructions Recorded Confirmed Type Ascorbic Acid [Vitamin C] 500 mg PO DAILY 06/22/24 06/22/24 History Aspirin EC [Ecotrin Low Dose] 81 mg PO DAILY 06/22/24 06/22/24 History Montelukast [Singulair] 10 mg PO DAILY 06/22/24 06/22/24 History Multivitamins, Thera [Multivitamin 1 tab PO DAILY 06/22/24 06/22/24 History (formulary)] Rosuvastatin [Crestor] 20 mg PO DAILY 06/22/24 06/22/24 History Vit C/E/Zn/Coppr/Lutein/Zeaxan 1 cap PO BID 06/22/24 06/22/24 History [Preservision Areds 2 Softgel] Allergies Allergy/AdvReac Type Severity Reaction Status Date / Time No Known Allergies Allergy Verified 06/22/24 09:55 Physical Examination - Vital Signs Vital Signs: Vital Signs Temp Pulse Resp BP Pulse Ox 06/23/24 14:10 97.8 F 88 16 131/93 97 06/23/24 09:00 97.4 F L 82 18 153/87 95 06/23/24 06:45 70 18 124/73 97 06/23/24 05:07 64 18 134/72 94 L 06/23/24 01:00 68 18 142/81 95 06/22/24 23:31 69 18 133/69 96 06/22/24 21:30 98.3 F 71 15 138/74 94 L 06/22/24 18:42 96 18 147/87 99 06/22/24 18:00 76 18 129/84 96 06/22/24 17:00 80 15 133/73 94 L 06/22/24 16:00 77 14 133/85 97 Intake and Output 06/23/24 06/23/24 06/23/24 06:59 14:59 22:59 Intake Total 0 Balance 0 Intake: Intake, IV Titration 0 Amount Sodium Chloride 0.9% 1, 0 000 ml @ 20 mls/hr IV . Q24H [facility] Rx#:[id number] Oral 0 Tube Feeding 0 Blood Product 0 Other: # Voids 2 GENERAL: The patient is lying in bed and is not in acute distress. NEUROLOGICAL: Higher mental function: The patient is awake, alert, oriented to self, place and time. Patient is following commands. No aphasia and no neglect. Cranial nerves: The pupils are round, equal and reactive to light and accommodation. Visual howe are full to confrontation throughout. Extraocular movement is intact no nystagmus is noted. Facial sensation is normal to touch throughout. The facial strength is normal throughout. Hearing is severely decreased bilaterally to hand rub (has hearing aid). Tongue is midline and moved [id number] without any difficulty. Mild dysarthria is noted. Shoulder shrug is normal bilaterally. Motor: The strength is right knee extension is 4+ to 5-. Otherwise 5 over 5 throughout. Normal tone and bulk. Cerebellum: Normal finger to nose bilaterally. Sensation: Sensation is normal to touch throughout. Reflexes (right/left): 2+ in uppers while lowers are 1+. Plantars are downgoing bilaterally. Results - Laboratory Findings CBC and BMP: 06/23/24 06:13 06/23/24 06:13 Abnormal Lab Findings: Abnormal Labs 06/22/24 06/23/24 06/23/24 09:35 06:13 06:13 RBC 4.06 L Hgb 12.7 L Hct 38.3 L Chloride 108 H 110 H BUN 26 H Creatinine 1.33 H 1.26 H Glucose 101 H Total Protein 6.0 L Assessment and Plan Assessment: This is a 79-year-old gentleman who presents to the emergency department on 06/22/2024 because of dysarthria, unsteady gait, right leg weakness. Patient stated that his symptoms began on 06/21/2024 at nighttime and it was brief then he had further episode. On examination he continues to have dysarthria and minimal right leg weakness. 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 Plan: Patient is resumed on his home dose of aspirin 81 mg daily. He was given aspirin 324 mg once in the ED. He was also started on Plavix 75 mg by the primary team. Patient is on Lipitor 40 mg nightly. Pending MRI of the brain. Continue neurochecks Cardiac monitoring PT OT and DIGITAL PRINTER are consulted Recommend permissive hypertensive for 24 hours Will defer the rest of the medical management to primary and other specialist For DVT prophylaxis I started the patient on subcu heparin 5000 units every 12 hours Discussed with the patient. Thank you for the consultation. Time with Patient: Greater than 30
--- NOTE | 2024-06-23 16:54 | MR ---
EXAMINATION TYPE: MR brain wo/w con DATE OF EXAM: 06/23/2024 4:46 PM CLINICAL INDICATION: Male, 79 years old with history of CVA; COMPARISON: CT brain 06/22/2024 TECHNIQUE: Multi planar, multi sequence imaging was performed through the brain including: T1, T2, In version recovery, susceptibility weighted imaging and gradient echo imaging and Diffusion weighted im aging. The patient was then given intravenous contrast and multi planar, T1 fat-saturation images wer e obtained. IV Contrast: 8.5 cc Gadavist FINDINGS: Restricted diffusion within the left mcdaniel radiata and left basal ganglia. The carr-white junctions, ventricular system, basal cisterns appear unremarkable. Diffusion-weighted imaging shows no evidence of restricted diffusion to suggest acute/subacute infarct. Intracranial ar terial flow voids are maintained. Midline structures show no abnormality. Scattered foci of high T2 s ignal intensity are seen within the periventricular white matter. The susceptibility weighted images do not reveal any evidence for micro-hemorrhage. After administration of gadolinium, no abnormal enha ncement is seen. The bone marrow signal is within normal limits. Paranasal sinuses and mastoid air cells: No significant paranasal sinus disease. Trace high T2 signal in the left mastoid air cells. Visualized orbits: Orbital contents are intact. IMPRESSION: 1. Acute/subacute CVA involving the left basal ganglia and left mcdaniel radiata. 2. Nonspecific white matter changes, likely related to small vessel ischemic disease. 3. Trace left mastoid air cell effusions. [facility], , 06/23/2024 4:52 PM
[2024-06-23] MEDS: HEPARIN SODIUM,PORCINE 5,000 UNIT/ML 1 ML VIAL SQ SCH (20:10)
--- NOTE | 2024-06-23 21:02 | P.PN ---
Subjective Progress Note Date: 06/23/24 HISTORY OF PRESENT ILLNESS: 78-year-old with active medical history of hypertension, hyperlipidemia, BPH, previous history of TIA, history of mild PAD with left internal carotid stenosis in the past, history of chronic edema, chronic arthralgia and arthritis who has not been hospitalized for a long time but presented to the emergency department at [facility] today 06/22/2024 with strokelike symptoms apparently started the day before around 9:00 in the evening when he noticed to have slight weakness in the right leg more than the right upper extremity with slight droopy face and slurred speech with mild expressive aphasia he had difficulty walking at the time with the current symptoms he ignored until the morning today 06/22/2024 when he finally decided to come to the emergency department where was seen and evaluated continue to have significant weakness in the right side with mild slurred speech no confusion. At the time was seen his Glascow score was mildly elevated but patient already passed the time for possible use tPA emergency decided to consult neurology admit patient to the hospital start Plavix and continue to control blood pressure, cholesterol, blood sugar and do neuroexam neurocheck regularly will need an MRI of the brain more specification of the area of the stroke is initially CAT scan of the brain did not show any area of concern but nonspecific white matter changes secondary to chronic small vessel ischemic change. EKG showed sinus rhythm with nonspecific ST depression with pulse running at 86 bpm with no sign of A-fib, CT angiogram of the neck shows no evidence of dissection of the cervical internal carotid artery or vertebral artery approximately 50% blockage along the right proximal internal carotid secondary to calcification plaque. Atheroma no finding consistent with intracranial aneurysm at this point. Patient be hospitalized, will consult neurology, MRI of the brain, neuroexam every 2 hours and try to control blood pressure blood sugar along closely very well. 06/23/2024: Continue to have significant weakness in the right side, rest of distress including carotid ultrasound came back his echocardiogram still pending and schedule an MRI of the brain at this point, has not seen neurology yet continue to watch his neuroexam carefully, continue to watch patient on heart monitor and so far did not show any sign of A-fib. Vitals are stable blood pressure running around 134/72 with pulse and 90 pulse oximetry on room air 94 percentile. He still have slight slurred speech but slight improvement compared to yesterday as for the upper extremities but stronger but the lower extremity still weaker. REVIEW OF SYSTEMS: CONSTITUTIONAL: Well-developed no acute respiratory distress. EYES: No icterus sclerae, no conjunctivitis. Slightly droopy face to the right side. EARS, NOSE, MOUTH, THROAT, and FACE: No sore throat, lymphadenopathy, carotid bruits or deformity. RESPIRATORY: No SOB cough or wheezes. CARDIOVASCULAR: No CP, Palpitation, PND, Orthopnea, or angina. GASTROINTESTINAL: No Abd pain, Nausea or vomiting, no Diarrhea or constipation, No GI Bleed, no distention or masses. GENITOURINARY: Negative for Hematuria or UTI, no kidney stones. Mild BPH symptoms with incontinence. INTEGUMENT/BREAST: Negative for any muscular injury with mild osteoarthritis.. HEMATOLOGIC/LYMPHATIC: Negative for bleed or purpura. MUSCULOSKELTAL: Negative for Myalgia or arthralgia. NEURLOGICAL: No LOC, Sz or syncope, blurred vision dizziness or abnormality.. Positive weakness in the right side with slight droopy face and slurred speech. BEHAVIORAL/PSYCH: Negative. ENDOCRINE: Negative. PHYSICAL EXAMINATION: General Appearance: Alert, cooperative, no distress, appears stated age. Neck HEENT: Supple, no lymphadenopathy, no thyroid enlargement, no carotid bruits. Lungs: Clear to auscultation without crackles or wheezes no rhonchi, no deformity. Chest Wall: Chest wall normal expansion with deep inspiration no tenderness and no deformity was found on exam, no costochondral pain or discomfort. Heart: Regular rate and rhythm, S1, S2 normal, no murmur, rub or gallop. Back: Symmetric, no curvature, ROM normal, no CVA tenderness. Abdomen: Soft, non-tender, bowel sounds active all four quadrants, no masses, no organomegaly. Extremities: Extremities normal, atraumatic, no cyanosis or edema. Pulses: 2+ and symmetric. Skin: Skin color, texture, tugor normal, no rashes or lesions. Neurologic: Alert oriented with no confusion, cranial nerve II to XII intact with slight droopy face to the right side. Slight lack of sensation and right- sided weakness in the right leg compared to the left side significant weakness in the right upper extremity compared to left side as well. ASSESSMENT AND PLAN: _Acute/subacute stroke not able to find the time of CAT scan of the brain, MRI of the brain will be ordered also patient seen neurology, carotid ultrasound and echocardiogram to exclude any possibility atrial septal defect, thrombus in the mitral valve or any other abnormality can explain the symptoms. _Severe weakness in the right side from stroke CAT scan is not a clear patient major event will refer patient to see neurology and patient be going for an MRI of the brain. _Hyperlipidemia: Back on atorvastatin 40 mg a day. _Hypertension: Blood pressure is mildly elevated was not on any medication and an outpatient will consider to add smaller dose of ARB. _Carotid stenosis especially the right side is still plaque of cholesterol around 50 percentile does not require any intervention but conservative management. _BPH: To avoid any urinary retention patient might require alpha-brian. _Abnormal balance and gait: Will require PT and OT to improve his mobility fast. _GI prophylaxis: Patient be on pantoprazole 40 mg a day. Objective - Vital Signs Vital signs: Vital Signs Temp 98.3 F 06/22/24 21:30 Pulse 64 06/23/24 05:07 Resp 18 06/23/24 05:07 BP 134/72 06/23/24 05:07 Pulse Ox 94 L 06/23/24 05:07 FiO2 Intake & Output 06/22/24 06/22/24 06/23/24 06:59 18:59 06:59 Output Total 175 Balance -175 Weight 85.82 kg Output: Urine 175 Other: # Voids 3 - Labs CBC & Chem 7: 06/22/24 09:35 06/22/24 09:35 Labs: Abnormal Lab Results - Last 24 Hours (Table) 06/22/24 Range/Units 09:35 Chloride 108 H (98-107) mmol/L BUN 26 H (9-20) mg/dL Creatinine 1.33 H (0.66-1.25) mg/dL Glucose 101 H (74-99) mg/dL
[2024-06-24] MEDS: hydrALAZINE HCL 25 MG TAB PO PRN (05:59)
[2024-06-24] MEDS: LOSARTAN 50 MG TAB PO SCH (09:26)
--- NOTE | 2024-06-24 14:47 | P.PN ---
Subjective Progress Note Date: 06/24/24 I am following-up with patient and he states he continues to have mild dysarthria but otherwise weakness has resolved. Denies new neurological issues. Objective - Vital Signs Vital signs: Vital Signs Temp 97.7 F 06/24/24 12:00 Pulse 83 06/24/24 12:00 Resp 16 06/24/24 12:00 BP 153/74 06/24/24 12:00 Pulse Ox 98 06/24/24 12:00 FiO2 Intake & Output 06/23/24 06/24/24 06/24/24 18:59 06:59 18:59 Intake Total 0 120 Balance 0 120 Weight 85.82 kg 86.2 kg Intake: Oral 0 120 Other: Voiding Method Toilet Toilet # Voids 2 2 2 - Exam GENERAL: The patient is and is not in acute distress. NEUROLOGICAL: Higher mental function: The patient is awake, alert, oriented to self, place and time. Patient is following commands. No aphasia and no neglect. Cranial nerves: The pupils are round, equal and reactive to light and accommodation. Visual howe are full to confrontation throughout. Extraocular movement is intact no nystagmus is noted. Facial sensation is normal to touch throughout. The facial strength is normal throughout. Hearing is severely decreased bilaterally to hand rub (has hearing aid). Tongue is midline and moved [id number] without any difficulty. Mild dysarthria is noted. Shoulder shrug is normal bilaterally. Motor: The strength is 5 over 5 throughout. Normal tone and bulk. Cerebellum: Normal finger to nose bilaterally. Sensation: Sensation is normal to touch throughout. Reflexes (right/left): 2+ in uppers while lowers are 1+. Plantars are downgoing bilaterally. Some of the workup during this hospital visit consisted of: CT of the head is reported as no acute intracranial process. Nonspecific white matter changes, likely secondary due to chronic small vessel ischemic disease. I personally reviewed the CT and I agree with the report CT angiography of the head and neck is reported as no evidence of dissection of cervical internal carotid artery or vertebral artery. Approximately 50% stenos is within the proximal right internal carotid artery secondary due to calcified plaque. No significant stenosis of the left internal carotid artery. No evidence of high-grade stenosis or intracranial aneurysm Carotid duplex is reported as no hemodynamically significant internal carotid artery stenosis on either side. 2D echo was reported as normal left ventricular size and systolic function. Mi nimal mitral and tricuspid regurgitation. Trivial aortic insufficiency. No pericardial effusion. Probable fat pad. No pulmonary hypertension MRI Brain: Acute/subacute CVA involving the left basal ganglia and mcdaniel radiata. White matter changes, likely related to small vessel ischemic disease 2D echo: Normal left ventricular size and systolic function. Minimal mitral and tricuspid regurgitation. Trivial aortic insufficiency. No pericardial effusion. Probable fat pad. No pulmonary hypertension. - Labs CBC & Chem 7: 06/23/24 06:13 06/23/24 06:13 Assessment and Plan Assessment: This is a 79-year-old gentleman who presents to the emergency department on 06/22/2024 because of dysarthria, unsteady gait, right leg weakness. Patient stated that his symptoms began on 06/21/2024 at nighttime and it was brief then he had further episode. On examination he continues to have dysarthria and minimal right leg weakness. Acute/subacute CVA involving the left basal ganglia and mcdaniel radiata: Etiology of stroke due to chronic small vessel disease from risk factors (age, HTN, hyperlipidemia). History of retinal artery occlusion over the right eye about possibly 12 months ago may be a more Hypertension Hyperlipidemia Benign prostate hyperplasia. Plan: Patient is resumed on his home dose of aspirin 81 mg daily. He was also started on Plavix 75 mg by the primary team. Continue dual antiplatelet for 21 days and after 21 days stop aspirin since he failed but continue Plavix indefinitely. Patient is on Lipitor 40 mg nightly. Ordered lipid panel Continue neurochecks Cardiac monitoring. Recommend a 30 day event monitor. PT OT and [employer] are consulted Will defer the rest of the medical management to primary and other specialist Upon discharge, recommend the patient to follow-up with neurologist as outpatient within 2-3 weeks. For DVT prophylaxis On subcu heparin 5000 units every 12 hours Discussed with the patient. Otherwise no additional neurological work-up. Time with Patient: Less than 30
[2024-06-24 18:39] VITALS: RESP 18
--- NOTE | 2024-06-24 20:41 | P.PN ---
Subjective Progress Note Date: 06/24/24 HISTORY OF PRESENT ILLNESS: 78-year-old with active medical history of hypertension, hyperlipidemia, BPH, previous history of TIA, history of mild PAD with left internal carotid stenosis in the past, history of chronic edema, chronic arthralgia and arthritis who has not been hospitalized for a long time but presented to the emergency department at [facility] today 06/22/2024 with strokelike symptoms apparently started the day before around 9:00 in the evening when he noticed to have slight weakness in the right leg more than the right upper extremity with slight droopy face and slurred speech with mild expressive aphasia he had difficulty walking at the time with the current symptoms he ignored until the morning today 06/22/2024 when he finally decided to come to the emergency department where was seen and evaluated continue to have significant weakness in the right side with mild slurred speech no confusion. At the time was seen his Glascow score was mildly elevated but patient already passed the time for possible use tPA emergency decided to consult neurology admit patient to the hospital start Plavix and continue to control blood pressure, cholesterol, blood sugar and do neuroexam neurocheck regularly will need an MRI of the brain more specification of the area of the stroke is initially CAT scan of the brain did not show any area of concern but nonspecific white matter changes secondary to chronic small vessel ischemic change. EKG showed sinus rhythm with nonspecific ST depression with pulse running at 86 bpm with no sign of A-fib, CT angiogram of the neck shows no evidence of dissection of the cervical internal carotid artery or vertebral artery approximately 50% blockage along the right proximal internal carotid secondary to calcification plaque. Atheroma no finding consistent with intracranial aneurysm at this point. Patient be hospitalized, will consult neurology, MRI of the brain, neuroexam every 2 hours and try to control blood pressure blood sugar along closely very well. 06/23/2024: Continue to have significant weakness in the right side, rest of distress including carotid ultrasound came back his echocardiogram still pending and schedule an MRI of the brain at this point, has not seen neurology yet continue to watch his neuroexam carefully, continue to watch patient on heart monitor and so far did not show any sign of A-fib. Vitals are stable blood pressure running around 134/72 with pulse and 90 pulse oximetry on room air 94 percentile. He still have slight slurred speech but slight improvement compared to yesterday as for the upper extremities but stronger but the lower extremity still weaker. 06/24/2024: Neurology's opinion this is an acute ischemic stroke agreed to continue 81 mg of aspirin daily along with Plavix 75 mg daily longer-term patient remain on Plavix probably enteric-coated aspirin after 3 weeks. Titrate statin still waiting for MRI of the brain in the meanwhile continue flash developer to make sure patient does not have any A-fib, echocardiogram performed by cardiology yesterday. Shows ejection fraction of 55-60 percentile with normal left ventricular size and function no pulmonary hypertension mitral valve structure with no abnormality aortic valve was normal as well. No sign of septal defect of any type. Will focus on continued physical therapy at this point continue to watch blood pressure and vitals a bit more careful meanwhile blood pressure remained slightly elevated but can outpatient has not been on any antihypertensive medication which probably moving on to do losartan 50 mg daily will be helpful along with hydralazine 25 mg on as-needed basis for high blood pressure. REVIEW OF SYSTEMS: CONSTITUTIONAL: Well-developed no acute respiratory distress. EYES: No icterus sclerae, no conjunctivitis. Slightly droopy face to the right side. EARS, NOSE, MOUTH, THROAT, and FACE: No sore throat, lymphadenopathy, carotid bruits or deformity. RESPIRATORY: No SOB cough or wheezes. CARDIOVASCULAR: No CP, Palpitation, PND, Orthopnea, or angina. GASTROINTESTINAL: No Abd pain, Nausea or vomiting, no Diarrhea or constipation, No GI Bleed, no distention or masses. GENITOURINARY: Negative for Hematuria or UTI, no kidney stones. Mild BPH symptoms with incontinence. INTEGUMENT/BREAST: Negative for any muscular injury with mild osteoarthritis.. HEMATOLOGIC/LYMPHATIC: Negative for bleed or purpura. MUSCULOSKELTAL: Negative for Myalgia or arthralgia. NEURLOGICAL: No LOC, Sz or syncope, blurred vision dizziness or abnormality.. Positive weakness in the right side with slight droopy face and slurred speech. BEHAVIORAL/PSYCH: Negative. ENDOCRINE: Negative. PHYSICAL EXAMINATION: General Appearance: Alert, cooperative, no distress, appears stated age. Neck HEENT: Supple, no lymphadenopathy, no thyroid enlargement, no carotid bruits. Lungs: Clear to auscultation without crackles or wheezes no rhonchi, no deformity. Chest Wall: Chest wall normal expansion with deep inspiration no tenderness and no deformity was found on exam, no costochondral pain or discomfort. Heart: Regular rate and rhythm, S1, S2 normal, no murmur, rub or gallop. Back: Symmetric, no curvature, ROM normal, no CVA tenderness. Abdomen: Soft, non-tender, bowel sounds active all four quadrants, no masses, no organomegaly. Extremities: Extremities normal, atraumatic, no cyanosis or edema. Pulses: 2+ and symmetric. Skin: Skin color, texture, tugor normal, no rashes or lesions. Neurologic: Alert oriented with no confusion, cranial nerve II to XII intact with slight droopy face to the right side. Slight lack of sensation and right- sided weakness in the right leg compared to the left side significant weakness in the right upper extremity compared to left side as well. ASSESSMENT AND PLAN: _Acute/subacute stroke not able to find the time of CAT scan of the brain, MRI of the brain still pending the result of carotid echo does not show any major abnormality at this point initiate physical therapy and continue anticoagulation with Plavix and aspirin. _Severe weakness in the right side from stroke CAT scan is not a clear patient major event will refer patient to see neurology and patient be going for an MRI of the brain. _Hyperlipidemia: Back on atorvastatin 40 mg a day. _Hypertension: Blood pressure remained above 140 will initiate losartan 50 mg a day and hydralazine 25 mg every 8 hours for systolic above 150. _Carotid stenosis especially the right side is still plaque of cholesterol around 50 percentile does not require any intervention but conservative management. _BPH: To avoid any urinary retention patient might require alpha-brian. _Abnormal balance and gait: Will require PT and OT to improve his mobility fast. _GI prophylaxis: Patient be on pantoprazole 40 mg a day. Discussion: Still waiting for MRI of the brain, continue PT OT, continue better management of blood pressure and expect patient hopefully with patient improvement either discharge or moving to SNF in the next 24 to 48 hours. Objective - Vital Signs Vital signs: Vital Signs Temp 97.8 F 06/24/24 04:00 Pulse 89 06/24/24 04:00 Resp 17 06/24/24 04:00 BP 158/88 06/24/24 04:00 Pulse Ox 96 06/24/24 04:00 FiO2 Intake & Output 10/22/24 10/22/24 10/23/24 06:59 18:59 06:59 Intake Total 0 0 Output Total 175 Balance -175 0 Weight 85.82 kg 86.2 kg Intake: Intake, IV Titration 0 Amount Sodium Chloride 0.9% 1, 0 000 ml @ 20 mls/hr IV . Q24H [facility] Rx#:[id number] Oral 0 0 Tube Feeding 0 Blood Product 0 Output: Urine 175 Other: Voiding Method Toilet # Voids 3 2 2 - Labs CBC & Chem 7: 06/23/24 06:13 06/23/24 06:13 Labs: Abnormal Lab Results - Last 24 Hours (Table) 06/23/24 06/23/24 Range/Units 06:13 06:13 RBC 4.06 L (4.30-5.90) m/uL Hgb 12.7 L (13.0-17.5) gm/dL Hct 38.3 L (39.0-53.0) % Chloride 110 H (98-107) mmol/L Creatinine 1.26 H (0.66-1.25) mg/dL Total Protein 6.0 L (6.3-8.2) g/dL
[2024-06-25 03:16] LABS: Chol/HDL Ratio 2.81 Ratio; LDL Cholesterol,Calculated 60.3 mg/dL (0.0-131.0)
--- NOTE | 2024-06-25 08:22 | P.DS ---
Providers Date of admission: 06/22/24 11:41 Attending physician: Anil Elizabeth Consults: 06/22/24 11:40 Consult Physician Routine Consulting Provider: Harley Valenzuela Consult Reason/Comments: stroke symptoms Do you want consulting provider notified?: Yes 06/24/24 07:42 Consult Physician Routine Consulting Provider: Asael Florentino Consult Reason/Comments: Loop Record Monitor Do you want consulting provider notified?: Yes Primary care physician: Anil Elizabeth [facility] Course: HISTORY OF PRESENT ILLNESS: 78-year-old with active medical history of hypertension, hyperlipidemia, BPH, p revious history of TIA, history of mild PAD with left internal carotid stenosis in the past, history of chronic edema, chronic arthralgia and arthritis who has not been hospitalized for a long time but presented to the emergency department at [facility] today 06/22/2024 with strokelike symptoms apparently started the day before around 9:00 in the evening when he noticed to have slight weakness in the right leg more than the right upper extremity with slight droopy face and slurred speech with mild expressive aphasia he had difficulty walking at the time with the current symptoms he ignored until the morning today 06/22/2024 when he finally decided to come to the emergency department where was seen and evaluated continue to have significant weakness in the right side with mild slurred speech no confusion. At the time was seen his Glascow score was mildly elevated but patient already passed the time for possible use tPA emergency decided to consult neurology admit patient to the hospital start Plavix and continue to control blood pressure, cholesterol, blood sugar and do neuroexam neurocheck regularly will need an MRI of the brain more specification of the area of the stroke is initially CAT scan of the brain did not show any area of concern but nonspecific white matter changes secondary to chronic small vessel ischemic change. EKG showed sinus rhythm with nonspecific ST depression with pulse running at 86 bpm with no sign of A-fib, CT angiogram of the neck shows no evidence of dissection of the cervical internal carotid artery or vertebral artery approximately 50% blockage along the right proximal internal carotid secondary to calcification plaque. Atheroma no finding consistent with intracranial aneurysm at this point. Patient be hospitalized, will consult neurology, MRI of the brain, neuroexam every 2 hours and try to control blood pressure blood sugar along closely very well. 06/23/2024: Continue to have significant weakness in the right side, rest of distress including carotid ultrasound came back his echocardiogram still pending and schedule an MRI of the brain at this point, has not seen neurology yet continue to watch his neuroexam carefully, continue to watch patient on heart monitor and so far did not show any sign of A-fib. Vitals are stable blood pressure running around 134/72 with pulse and 90 pulse oximetry on room air 94 percentile. He still have slight slurred speech but slight improvement compared to yesterday as for the upper extremities but stronger but the lower extremity still weaker. 06/24/2024: Neurology's opinion this is an acute ischemic stroke agreed to continue 81 mg of aspirin daily along with Plavix 75 mg daily longer-term patient remain on Plavix probably enteric-coated aspirin after 3 weeks. 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 Shows ejection fraction of 55-60 percentile with normal left ventricular size and function no pulmonary hypertension mitral valve structure with no abnormality aortic valve was normal as well. No sign of septal defect of any type. Will focus on continued physical therapy at this point continue to watch blood pressure and vitals a bit more careful meanwhile blood pressure remained slightly elevated but can outpatient has not been on any antihypertensive medication which probably moving on to do losartan 50 mg daily will be helpful along with hydralazine 25 mg on as-needed basis for high blood pressure. 06/25/2024: Please see neurology yesterday and agree with the results of the MRI consistent with stroke of left basal ganglia on and left mcdaniel radiat nonspecific white matter change. The patient has done well with physical and speech therapy and able to ambulate with minimum assistance. Patient again wished to go back home with the help of his family and will probably require walker and home physical therapy. Arrangement will be made. In the meanwhile an intense monitor his blood pressure to keep systolic below 140 with adjustment of medication patient is doing well. Should be able to let patient go home today and follow the rest as an outpatient. REVIEW OF SYSTEMS: CONSTITUTIONAL: Well-developed no acute respiratory distress. EYES: No icterus sclerae, no conjunctivitis. Slightly droopy face to the right side. EARS, NOSE, MOUTH, THROAT, and FACE: No sore throat, lymphadenopathy, carotid bruits or deformity. RESPIRATORY: No SOB cough or wheezes. CARDIOVASCULAR: No CP, Palpitation, PND, Orthopnea, or angina. GASTROINTESTINAL: No Abd pain, Nausea or vomiting, no Diarrhea or constipation, No GI Bleed, no distention or masses. GENITOURINARY: Negative for Hematuria or UTI, no kidney stones. Mild BPH symptoms with incontinence. INTEGUMENT/BREAST: Negative for any muscular injury with mild osteoarthritis.. HEMATOLOGIC/LYMPHATIC: Negative for bleed or purpura. MUSCULOSKELTAL: Negative for Myalgia or arthralgia. NEURLOGICAL: No LOC, Sz or syncope, blurred vision dizziness or abnormality.. Positive weakness in the right side with slight droopy face and slurred speech. BEHAVIORAL/PSYCH: Negative. ENDOCRINE: Negative. PHYSICAL EXAMINATION: General Appearance: Alert, cooperative, no distress, appears stated age. Neck HEENT: Supple, no lymphadenopathy, no thyroid enlargement, no carotid bruits. Lungs: Clear to auscultation without crackles or wheezes no rhonchi, no deformit y. Chest Wall: Chest wall normal expansion with deep inspiration no tenderness and no deformity was found on exam, no costochondral pain or discomfort. Heart: Regular rate and rhythm, S1, S2 normal, no murmur, rub or gallop. Back: Symmetric, no curvature, ROM normal, no CVA tenderness. Abdomen: Soft, non-tender, bowel sounds active all four quadrants, no masses, no organomegaly. Extremities: Extremities normal, atraumatic, no cyanosis or edema. Pulses: 2+ and symmetric. Skin: Skin color, texture, tugor normal, no rashes or lesions. Neurologic: Alert oriented with no confusion, cranial nerve II to XII intact with slight droopy face to the right side. Slight lack of sensation and right- sided weakness in the right leg compared to the left side significant weakness in the right upper extremity compared to left side as well. ASSESSMENT AND PLAN: _Acute/subacute stroke not able to find the time of CAT scan of the brain, MRI of the brain with subacute stroke affecting the brainstem. Carotid echo does not show any major abnormality at this point initiate physical therapy and continue anticoagulation with Plavix and aspirin. Patient is doing well with physical therapy. _Severe weakness in the right side from stroke CAT scan is not a clear patient major event will refer patient to see neurology and patient be going for an MRI of the brain. _Hyperlipidemia: Back on atorvastatin 40 mg a day. _Hypertension: Blood pressure remained above 140 will initiate losartan 50 mg a day and hydralazine 25 mg every 8 hours for systolic above 150. Blood pressure has been much better controlled with combination of losartan and hydralazine. _Carotid stenosis especially the right side is still plaque of cholesterol around 50 percentile does not require any intervention but conservative management. _BPH: To avoid any urinary retention patient might require alpha-brian. _Abnormal balance and gait: Will require PT and OT to improve his mobility fast. _GI prophylaxis: Patient be on pantoprazole 40 mg a day. Discussion: Had his MRI of the brain seen neurology had acute versus subacute stroke affected the brainstem with left basal ganglia on and mcdaniel radiata, patient has done well with physical therapy he should be able to let him go home with home care today. Hospital course: Patient admitted to the hospital on 06/22/2024 with sign and symptom of weakness of the right leg more than the right upper extremity with slight droopy face and slurred speech his complaint started around 9:00 in the evening the day before that he ended to the emergency room for the following morning by the time was seen in the emergency department timeframe for using tPA was ordered in the past the patient CAT scan of the brain showed small vessel disease only was admitted to the hospital consult neurology had CTA along with carotid ultrasound echocardiogram and MRI of the brain was done which shows basal ganglion stroke in the left side along with stroke in the left mcdaniel radiata, patient seen neurology agree with the current management with anticoagulation, statin, and intense hypertensive management. Physical therapy was started and patient apparently able to manage well his weakness has improved significantly. Patient will be returned home with home care and physical therapy and he is very stable to be discharged today on . Time spent on patient discharge was over 35 minutes. Patient Condition at Discharge: Fair Plan - Discharge Summary Discharge Rx Participant: No New Discharge Prescriptions: New hydrALAZINE HCL [Apresoline] 25 mg PO QID PRN #90 tab PRN Reason: Blood Pressure - High Losartan [Cozaar] 50 mg PO DAILY #60 tab Clopidogrel [Plavix] 75 mg PO DAILY #90 tab Continue Multivitamins, Thera [Multivitamin (formulary)] 1 tab PO DAILY Aspirin EC [Ecotrin Low Dose] 81 mg PO DAILY Montelukast [Singulair] 10 mg PO DAILY Ascorbic Acid [Vitamin C] 500 mg PO DAILY Vit C/E/Zn/Coppr/Lutein/Zeaxan [Preservision Areds 2 Softgel] 1 cap PO BID Changed Rosuvastatin [Crestor] 40 mg PO DAILY #30 tab Discharge Medication List Ascorbic Acid [Vitamin C] 500 mg PO DAILY 06/22/24 [History] Aspirin EC [Ecotrin Low Dose] 81 mg PO DAILY 06/22/24 [History] Montelukast [Singulair] 10 mg PO DAILY 06/22/24 [History] Multivitamins, Thera [Multivitamin (formulary)] 1 tab PO DAILY 06/22/24 [History] Vit C/E/Zn/Coppr/Lutein/Zeaxan [Preservision Areds 2 Softgel] 1 cap PO BID 06/22/24 [History] Clopidogrel [Plavix] 75 mg PO DAILY #90 tab 06/25/24 [Rx] Losartan [Cozaar] 50 mg PO DAILY #60 tab 06/25/24 [Rx] Rosuvastatin [Crestor] 40 mg PO DAILY #30 tab 06/25/24 [Rx] hydrALAZINE HCL [Apresoline] 25 mg PO QID PRN #90 tab 06/25/24 [Rx] Follow up Appointment(s)/Referral(s): Anil Elizabeth MD [Primary Care Provider] - 1-2 days Jose Samson DO [STAFF PHYSICIAN] - 1 Week Discharge Disposition: HOME WITH HOME HEALTH SERVICES
[2024-06-25] MEDS ORDERED: SODIUM CHLORIDE 0.9% 1,000 ML IV SCH (09:15)
[2024-06-25 10:24] VITALS: BP 137/67; PULSE 90; TEMP 97.6
[2024-06-25 10:42] LABS: HCT 39.9 % (39.0-53.0); HGB 13.3 gm/dL (13.0-17.5); MCH 30.6 pg (25.0-35.0); MCHC 33.2 g/dL (31.0-37.0); MCV 92.1 fL (80.0-100.0); Mean Platelet Volume 7.4; Platelet Count 272 k/uL (150-450); RBC 4.34 m/uL (4.30-5.90); WBC 6.5 k/uL (3.8-10.6)
[2024-06-25 10:48] LABS: ALT 20 U/L (4-49); AST 22 U/L (17-59); African American GFR (CKD) 59 (>60 ml/min/1.73 sqM); Albumin 4.1 g/dL (3.5-5.0); Alkaline Phosphatase 64 U/L (38-126); Anion Gap 7 mmol/L; Blood Urea Nitrogen 21 mg/dL (9-20); Calcium 9.4 mg/dL (8.4-10.2); Carbon Dioxide 24 mmol/L (22-30); Chloride 110 mmol/L (98-107); Glucose 135 mg/dL (74-99); Non-African American GFR(CKD) 51 (>60 ml/min/1.73 sqM); Sodium 141 mmol/L (137-145); Total Protein 6.7 g/dL (6.3-8.2)
[2024-06-25] MEDS: LIDOCAINE 1% INJ 10MG/ML (20 ML MDV) SQ ONE (10:52)
[2024-06-25] MEDS: SODIUM CHLORIDE 0.9% 250 ML IV ONE (10:52)
--- NOTE | 2024-06-25 11:12 | P.EPPROC ---
- EP Procedure Note Electrophysiology Procedure Note: Loop monitor implant Primary physicians: Dr. Elizabeth Dance Historian: Dr. Florentino Indication: CVA, slurred speech right facial droop history of right ocular CVA. Acute/subacute infarct left basal ganglia and left mcdaniel radiata. Normal LV and RV size and function, normal valves. 50% stenosis proximal right internal carotid artery, calcified plaque. No stenosis of the left internal carotid artery. No high-grade stenosis or intracranial aneurysm. Patent vertebral arteries. Currently being treated with aspirin, losartan and atorvastatin 40 mg p.o. daily. History of hypertension Patient was brought to the EP lab in a fasting state. Written informed consent was obtained prior to the procedure. The left pectoral area was prepped and draped per protocol. Intravenous antibiotic was administered preoperatively. A subcutaneous Loop monitor was implanted successfully and the wound was closed per protocol. The device was programmed to detect significant aldair- arrhythmic and tachy-arrhythmic events. Device and programming details: A-fib protocol
--- NOTE | 2024-06-25 13:37 | P.CRDCN ---
History of Present Illness Consult date: 06/24/24 Reason for Consult (text): Loop recorder History of present illness: This is a 79-year-old male with past medical history of hyperlipidemia, hy pertension, benign prostatic hypertrophy. Patient presented to the emergency center on 06/22 due to dysarthria, unsteady gait and right leg weakness. He has been diagnosed with acute or subacute CVA. We have been asked to evaluate patient for loop recorder. Blood pressure 140/65, heart rate 97, pulse ox 97% on room air. EKG: Sinus rhythm Echocardiogram reveals EF 55 to 60%. Minimal mitral and tricuspid regurgitation. Trivial aortic insufficiency. No pericardial effusion. Probable fat pad. No pulmonary hypertension. Chest x-ray: COPD. Some focal medial right basilar atelectasis versus infiltrate. CT angiogram of the head and neck revealed no dissection of the cervical internal and carotid arteries or vertebral arteries. 50% stenosis in the proximal right internal carotid artery secondary to calcified plaque. No significant stenosis on the left internal carotid artery. No evidence of high- grade stenosis or intracranial aneurysm. Brain MRI: Acute/subacute CVA involving the left basal ganglia and left mcdaniel radiata. Nonspecific white matter changes. Laboratory studies: Hemoglobin 12.7. BUN 20, creatinine 1.26. Home cardiac medications: Aspirin 81 mg daily, Crestor 20 mg daily Review Of Systems: At the time of my exam: CONSTITUTIONAL: Denies fever or chills. HEENT: Denies blurred vision, vision changes, or eye pain. Denies hemoptysis CARDIOVASCULAR: Denies chest pain. Denies orthopnea. Denies PND. Denies palpitations RESPIRATORY: Denies shortness of breath. GASTROINTESTINAL: Denies abdominal pain. Denies nausea or vomiting. HEMATOLOGIC: Denies bleeding disorders. GENITOURINARY: Denies any blood in urine. SKIN: Denies puritis. Denies rash. Physical examination: Gen: This is a 79-year-old male in no acute distress VS: reviewed HEENT: Head is atraumatic, normocephalic. Pupils equal, round. Sclerae is anicteric. NECK: Supple. No JVD. LUNGS: Clear to auscultation. No wheezes or rhonchi. No intercostal retractions. HEART: Regular rate and rhythm. No murmur. ABDOMEN: Soft No tenderness. EXTREMITIES: No pedal edema. No calf tenderness. NEUROLOGICAL: Patient is awake, alert and oriented x3. Assessment: Acute/subacute CVA Hypertension Hyperlipidemia BPH Plan: Resume patient's home cardiac medications Patient has been started on Plavix 75 mg daily Schedule loop recorder implantation today Patient is cleared for discharge following procedure and follow-up with Dr. Florentino in 1 to 2 weeks. Thank you kindly for this consultation. Nurse practitioner note has been reviewed, I agree with documented findings and plan of care. Patient was seen and examined. Past Medical History Past Medical History: Hyperlipidemia Additional Past Medical History / Comment(s): 69% blockage in ICA, History of Any Multi-Drug Resistant Organisms: None Reported Past Surgical History: Hernia Repair Past Anesthesia/Blood Transfusion Reactions: No Reported Reaction Past Psychological History: No Psychological Hx Reported Smoking Status: Never smoker Past Alcohol Use History: None Reported Past Drug Use History: None Reported - Past Family History Mother Additional Family Medical History / Comment(s): of brain tumour Medications and Allergies Home Medications Medication Instructions Recorded Confirmed Type Ascorbic Acid [Vitamin C] 500 mg PO DAILY 06/22/24 06/22/24 History Aspirin EC [Ecotrin Low Dose] 81 mg PO DAILY 06/22/24 06/22/24 History Montelukast [Singulair] 10 mg PO DAILY 06/22/24 06/22/24 History Multivitamins, Thera [Multivitamin 1 tab PO DAILY 06/22/24 06/22/24 History (formulary)] Vit C/E/Zn/Coppr/Lutein/Zeaxan 1 cap PO BID 06/22/24 06/22/24 History [Preservision Areds 2 Softgel] Clopidogrel [Plavix] 75 mg PO DAILY #90 tab 06/25/24 Rx Losartan [Cozaar] 50 mg PO DAILY #60 tab 06/25/24 Rx Rosuvastatin [Crestor] 40 mg PO DAILY #30 tab 06/25/24 Rx hydrALAZINE HCL [Apresoline] 25 mg PO QID PRN #90 tab 06/25/24 Rx Allergies Allergy/AdvReac Type Severity Reaction Status Date / Time No Known Allergies Allergy Verified 06/22/24 09:55 Physical Exam Vitals: Vital Signs Temp Pulse Pulse Pulse Resp BP BP 06/24/24 09:25 97.6 F 97 16 140/65 06/24/24 04:00 97.8 F 89 17 158/88 06/23/24 23:32 97.5 F L 63 17 149/90 06/23/24 20:03 97.6 F 74 17 134/89 06/23/24 14:10 97.8 F 88 16 131/93 Pulse Ox 06/24/24 09:25 97 06/24/24 04:00 96 06/23/24 23:32 99 06/23/24 20:03 99 06/23/24 14:10 97 Intake and Output 06/23/24 06/24/24 06/24/24 22:59 06:59 14:59 Intake Total 0 120 Balance 0 120 Intake: Oral 0 120 Other: Voiding Method Toilet Toilet Toilet # Voids 1 2 Weight 85.82 kg 86.2 kg Results 06/25/24 09:45 06/25/24 09:45 Current Medications Generic Name Dose Route Start Last Admin Trade Name Freq PRN Reason Stop Dose Admin Ascorbic Acid 500 mg 06/23/24 09:00 06/24/24 09:26 Ascorbic Acid 500 Mg Tab PO 500 mg DAILY HARLEEN Administration Aspirin 81 mg 06/23/24 09:00 06/24/24 09:26 Aspirin 81 Mg PO 81 mg DAILY HARLEEN Administration Atorvastatin Calcium 40 mg 06/23/24 09:00 06/24/24 09:26 Atorvastatin 40 Mg Tab PO 40 mg DAILY HARLEEN Administration Clopidogrel Bisulfate 75 mg 06/23/24 09:00 06/24/24 09:27 Clopidogrel 75 Mg Tab PO 75 mg DAILY HARLEEN Administration Heparin Sodium (Porcine) 5,000 unit 06/23/24 21:00 06/24/24 09:26 Heparin Sodium,Porcine 5,000 Unit/Ml 1 Ml Vial SQ 5,000 unit Q12HR HARLEEN Administration Hydralazine HCl 25 mg 06/24/24 05:34 06/24/24 05:59 Hydralazine Hcl 25 Mg Tab PO 25 mg QID PRN Administration Blood Pressure - High Sodium Chloride 1,000 mls @ 20 mls/hr 06/22/24 11:45 06/24/24 05:34 Saline 0.9% IV 20 mls/hr .Q24H HARLEEN Administration Losartan Potassium 50 mg 06/24/24 09:00 06/24/24 09:26 Losartan 50 Mg Tab PO 50 mg DAILY HARLEEN Administration Montelukast Sodium 10 mg 06/23/24 09:00 06/24/24 09:26 Montelukast 10 Mg Tab PO 10 mg DAILY HARLEEN Administration Multivitamins 1 each 06/23/24 09:00 06/24/24 09:26 Multivitamins, Thera 1 Each Tab PO 1 each DAILY HARLEEN Administration Multivitamins/Minerals 1 each 06/22/24 21:00 06/24/24 09:26 Vit A,C & I-Xynpnw-Jbrodurn 1 Each Tab PO 1 each BID HARLEEN Administration Naloxone HCl 0.2 mg 06/22/24 11:40 Naloxone 0.4 Mg/Ml 1 Ml Vial IV Q2M PRN Opioid Reversal Intake and Output 06/23/24 06/24/24 06/24/24 22:59 06:59 14:59 Intake Total 0 120 Balance 0 120 Intake: Oral 0 120 Other: Voiding Method Toilet Toilet Toilet # Voids 1 2 Weight 85.82 kg 86.2 kg 06/23/24 06:13 06/23/24 06:13
== END 2024-06-25 15:05 | disposition home health service (06) | DRG 41 ==
LOC: EC 08:56 → 3SCARD 11:41
PROVIDERS: ADMIT Internal Medicine Geriatric Medicine; ATTEND Internal Medicine Geriatric Medicine
PROC: 0JH632Z Insertion of Monitoring Device into Chest Subcutaneous Tissue and Fascia, Percutaneous Approach (ICD-10-PCS; principal; 2024-06-25 08:30)
DX: I63.9 Cerebral infarction, unspecified (principal); G81.91 Hemiplegia, unspecified affecting right dominant side; E78.5 Hyperlipidemia, unspecified; I10 Essential (primary) hypertension; I65.21 Occlusion and stenosis of right carotid artery; J44.9 Chronic obstructive pulmonary disease, unspecified; N40.0 Benign prostatic hyperplasia without lower urinary tract symptoms; R47.81 Slurred speech; R29.810 Facial weakness; R29.706 NIHSS score 6; Z79.02 Long term (current) use of antithrombotics/antiplatelets; Z79.82 Long term (current) use of aspirin; Z79.899 Other long term (current) drug therapy; Z86.73 Personal history of transient ischemic attack (TIA), and cerebral infarction without residual deficits
CPT/HCPCS: 33285; 36415; 70450; 70496; 70498; 70553; 71046; 80053; 80061; 82550; 84484; 85025; 85027; 85610; 85730; 93005; 93306; 93880; 96360; 96361; 99285

== ENCOUNTER → 2024-08-07 | Outpatient (CLI) | payer MEDICARE ==
[2024-08-07 14:14] LABS: Partial Thromboplastin Time 24.4 sec (22.0-30.0); Prothrombin Time 11.1 sec (10.0-12.5)
--- NOTE | 2024-08-07 14:42 | XR ---
EXAMINATION TYPE: XR knee limited LT DATE OF EXAM: 08/07/2024 COMPARISON: NONE CLINICAL INDICATION: Male, 79 years old with history of M25.561 PAIN; TECHNIQUE: 2 views FINDINGS: There is mild degenerative spurring at the medial and patellofemoral compartments. Some gen eralized soft tissue swelling. Small knee joint effusion is nonspecific. No acute fracture, subluxati on, or dislocation is seen. Some linear density measuring 7 mm within the anterior soft tissues. Clin ically correlate. Punctate 4 mm suspected external artifact overlying the anterior aspect of the knee . IMPRESSION: 1. Soft tissue swelling. Some linear density measuring 7 mm in the anterior soft tissues. Possible ex ternal artifact. Correlate to exclude any retained foreign body. 2. Small knee joint effusion. 3. Mild degenerative spurring medial and patellofemoral compartments. No acute osseous abnormality se en. 4. Suspect a 4 mm focus of debris on the anterior skin. [facility], , 08/07/2024 2:40 PM
[2024-08-07 19:04] LABS: Protein, Total 6.7 g/dL (6.2-8.2)
[2024-08-07 22:34] LABS: Cardiolipin Ab IgG Interp Positive (Negative); Cardiolipin Ab IgM Interp Negative (Negative); Cardiolipin IgA Antibody <2.0 U/mL; Cardiolipin IgM Antibody <1.5 U/mL
== END | disposition home or self-care (01) ==
LOC: LABWHC1 11:40
PROVIDERS: ATTEND Psychiatry & Neurology Neurology
DX: G62.9 Polyneuropathy, unspecified (principal); I63.9 Cerebral infarction, unspecified
CPT/HCPCS: 36415; 82550; 82607; 82747; 83036; 83090; 84165; 85610; 85652; 85730; 86147

== ENCOUNTER 2024-08-21 12:59 | Observation (INO) | payer MEDICARE ==
--- NOTE | 2024-08-21 13:21 | ED ---
General Adult HPI - General Chief complaint: Neuro Symptoms/Deficit Stated complaint: Possible stroke Time Seen by Provider: 08/21/24 13:05 Source: patient, family, RN notes reviewed, old records reviewed Mode of arrival: ambulatory Limitations: no limitations - History of Present Illness Initial comments: 79-year-old male presents for evaluation of word finding difficulty and slurred speech. Symptoms began 1 hour prior to arrival at approximately noon. Patient had recent stroke with similar symptoms approximately 2 months ago. He is currently on Plavix. He states his symptoms have improved. He denies limb numbness or weakness. Denies headache. - Related Data Home Medications Medication Instructions Recorded Confirmed Ascorbic Acid [Vitamin C] 500 mg PO DAILY 06/22/24 06/22/24 Aspirin EC [Ecotrin Low Dose] 81 mg PO DAILY 06/22/24 06/22/24 Montelukast [Singulair] 10 mg PO DAILY 06/22/24 06/22/24 Multivitamins, Thera [Multivitamin 1 tab PO DAILY 06/22/24 06/22/24 (formulary)] Vit C/E/Zn/Coppr/Lutein/Zeaxan 1 cap PO BID 06/22/24 06/22/24 [Preservision Areds 2 Softgel] Previous Rx's Medication Instructions Recorded Clopidogrel [Plavix] 75 mg PO DAILY #90 tab 06/25/24 Losartan [Cozaar] 50 mg PO DAILY #60 tab 06/25/24 Rosuvastatin [Crestor] 40 mg PO DAILY #30 tab 06/25/24 hydrALAZINE HCL [Apresoline] 25 mg PO QID PRN #90 tab 06/25/24 Allergies Allergy/AdvReac Type Severity Reaction Status Date / Time No Known Allergies Allergy Verified 08/21/24 13:00 Review of Systems ROS Statement: Those systems with pertinent positive or pertinent negative responses have been documented in the HPI. ROS Other: All systems not noted in ROS Statement are negative. Past Medical History Past Medical History: CVA/TIA, Hyperlipidemia, Hypertension Additional Past Medical History / Comment(s): 69% blockage in ICA, History of Any Multi-Drug Resistant Organisms: None Reported Past Surgical History: Hernia Repair Past Anesthesia/Blood Transfusion Reactions: No Reported Reaction Past Psychological History: No Psychological Hx Reported Smoking Status: Never smoker Past Alcohol Use History: None Reported Past Drug Use History: None Reported - Past Family History Mother Additional Family Medical History / Comment(s): of brain tumour General Exam Limitations: no limitations General appearance: alert, in no apparent distress Head exam: Present: atraumatic, normocephalic Eye exam: Present: normal appearance, PERRL ENT exam: Present: normal exam Neck exam: Present: normal inspection. Absent: tenderness, meningismus Respiratory exam: Present: normal lung sounds bilaterally. Absent: respiratory distress, wheezes Cardiovascular Exam: Present: regular rate, normal rhythm GI/Abdominal exam: Present: soft. Absent: distended, tenderness, guarding Back exam: Present: normal inspection Neurological exam: Present: alert, oriented X3, CN II-XII intact. Absent: motor sensory deficit (Normal Speech, NIH is 0) Psychiatric exam: Present: normal affect, normal mood Skin exam: Present: warm, dry, intact. Absent: cyanosis, diaphoretic Course Vital Signs 08/21/24 13:01 Temperature 97.9 F Pulse Rate 92 Respiratory 20 Rate Blood Pressure 153/77 O2 Sat by Pulse 98 Oximetry Medical Decision Making - Medical Decision Making Was pt. sent in by a medical professional or institution (, PA, CHECKING CLERK, urgent care, hospital, or intermediate...) When possible be specific @ -No Did you speak to anyone other than the patient for history (EMS, parent, family, police, friend...)? What history was obtained from this source @ -No Did you review nursing and triage notes (agree or disagree)? Why? @ -I reviewed and agree with nursing and triage notes Were old charts reviewed (outside hosp., previous admission, EMS record, old EKG, old radiological studies, urgent care reports/EKG's, intermediate records)? Report findings @ -No old charts were reviewed Differential Diagnosis (chest pain, altered mental status, abdominal pain women, abdominal pain men, vaginal bleeding, weakness, fever, dyspnea, syncope, headache, dizziness, GI bleed, back pain, seizure, CVA, palpatations, mental hea lth, musculoskeletal)? @ -Not applicable EKG interpreted by me (3pts min.). @ -Sinus rhythm, rate of 89, NC interval 145, QRS duration 97, QTc 416 X-rays interpreted by me (1pt min.). @ -None done CT interpreted by me (1pt min.). @ -CT brain without contrast, negative for intracranial hemorrhage or mass effect. U/S interpreted by me (1pt. min.). @ -None done What testing was considered but not performed or refused? (CT, X-rays, U/S, labs)? Why? @ -None What meds were considered but not given or refused? Why? @ -None Did you discuss the management of the patient with other professionals (professionals i.e. DrBarbara, PA, CHECKING CLERK, lab, RT, psych nurse, social sciences chair, quantitative equity head, teacher, compliance officer, classification case manager)? Give summary @ -Dr. Reza who will admit Was smoking cessation discussed for >3mins.? @ -No Was critical care preformed (if so, how long)? @ -No Were there social determinants of health that impacted care today? How? (Homelessness, low income, unemployed, alcoholism, drug addiction, transportation, low edu. Level, literacy, decrease access to med. care, senior living, rehab)? @ -No Was there de-escalation of care discussed even if they declined (Discuss DNR or withdrawal of care, Hospice)? DNR status @ -No What co-morbidities impacted this encounter? (DM, HTN, Smoking, COPD, CAD, Cancer, CVA, ARF, Chemo, Hep., AIDS, mental health diagnosis, sleep apnea, morbid obesity)? @Hypertension, hyperlipidemia, recent CVA Was patient admitted / discharged? Hospital course, mention meds given and route, prescriptions, significant lab abnormalities, going to OR and other pertinent info. @79-year-old male with an episode of word finding difficulty, slurred speech, this was resolved at the time my evaluation. This remained resolved during the patient's initial ER evaluation. He did receive CT and CT angiography in the emergency department he had laboratory studies obtained and EKG. His CT without contrast was negative and he was given an additional dose of aspirin on top of his Plavix which he took this morning. He remained asymptomatic but will be admitted for TIA workup. MRI has been ordered Undiagnosed new problem with uncertain prognosis? @ -No Drug Therapy requiring intensive monitoring for toxicity (Heparin, Nitro, Insulin, Cardizem)? @ -No Were any procedures done? @ -No Diagnosis/symptom? @ -TIA, recent CVA Acute, or Chronic, or Acute on Chronic? @ -Acute Uncomplicated (without systemic symptoms) or Complicated (systemic symptoms)? @ -Default Side effects of treatment? @ -No Exacerbation, Progression, or Severe Exacerbation? @ -No Poses a threat to life or bodily function? How? (Chest pain, USA, ND, pneumonia, PE, COPD, DKA, ARF, appy, cholecystitis, CVA, Diverticulitis, Homicidal, Suicidal, threat to staff... and all critical care pts) @Yes, CVA - Lab Data Result diagrams: 08/21/24 13:26 08/21/24 13:26 Lab Results 08/21/24 08/21/24 08/21/24 Range/Units 13:26 13: 13:26 WBC 7.2 (3.8-10.6) k/uL RBC 4.37 (4.30-5.90) m/uL Hgb 13.6 (13.0-17.5) gm/dL Hct 40.3 (39.0-53.0) % MCV 92.1 (80.0-100.0) fL MCH 31.0 (25.0-35.0) pg MCHC 33.7 (31.0-37.0) g/dL RDW 13.4 (11.5-15.5) % Plt Count 257 (150-450) k/uL MPV 6.9 Neutrophils % 64 % Lymphocytes % 22 % Monocytes % 6 % Eosinophils % 5 % Basophils % 1 % Neutrophils # 4.6 (1.3-7.7) k/uL Lymphocytes # 1.6 (1.0-4.8) k/uL Monocytes # 0.4 (0-1.0) k/uL Eosinophils # 0.4 (0-0.7) k/uL Basophils # 0.1 (0-0.2) k/uL PT 10.7 (10.0-12.5) sec INR 1.0 (<1.2) APTT 21.3 L (22.0-30.0) sec Sodium 139 (137-145) mmol/L Potassium 5.4 H (3.5-5.1) mmol/L Chloride 110 H (98-107) mmol/L Carbon Dioxide 21 L (22-30) mmol/L Anion Gap 8 mmol/L BUN 26 H (9-20) mg/dL Creatinine 1.28 H (0.66-1.25) mg/dL Est GFR (CKD-EPI)AfAm 61 (>60 ml/min/1.73 sqM) Est GFR (CKD-EPI)NonAf 53 (>60 ml/min/1.73 sqM) Glucose 97 (74-99) mg/dL Calcium 9.5 (8.4-10.2) mg/dL Total Bilirubin 1.0 (0.2-1.3) mg/dL AST 50 (17-59) U/L ALT 32 (4-49) U/L Alkaline Phosphatase 75 (38-126) U/L Creatine Kinase 147 (55-170) U/L Troponin I (0.000-0.034) ng/mL Total Protein 7.9 (6.3-8.2) g/dL Albumin 5.0 (3.5-5.0) g/dL 08/21/24 Range/Units 13:26 WBC (3.8-10.6) k/uL RBC (4.30-5.90) m/uL Hgb (13.0-17.5) gm/dL Hct (39.0-53.0) % MCV (80.0-100.0) fL MCH (25.0-35.0) pg MCHC (31.0-37.0) g/dL RDW (11.5-15.5) % Plt Count (150-450) k/uL MPV Neutrophils % % Lymphocytes % % Monocytes % % Eosinophils % % Basophils % % Neutrophils # (1.3-7.7) k/uL Lymphocytes # (1.0-4.8) k/uL Monocytes # (0-1.0) k/uL Eosinophils # (0-0.7) k/uL Basophils # (0-0.2) k/uL PT (10.0-12.5) sec INR (<1.2) APTT (22.0-30.0) sec Sodium (137-145) mmol/L Potassium (3.5-5.1) mmol/L Chloride (98-107) mmol/L Carbon Dioxide (22-30) mmol/L Anion Gap mmol/L BUN (9-20) mg/dL Creatinine (0.66-1.25) mg/dL Est GFR (CKD-EPI)AfAm (>60 ml/min/1.73 sqM) Est GFR (CKD-EPI)NonAf (>60 ml/min/1.73 sqM) Glucose (74-99) mg/dL Calcium (8.4-10.2) mg/dL Total Bilirubin (0.2-1.3) mg/dL AST (17-59) U/L ALT (4-49) U/L Alkaline Phosphatase (38-126) U/L Creatine Kinase (55-170) U/L Troponin I <0.012 (0.000-0.034) ng/mL Total Protein (6.3-8.2) g/dL Albumin (3.5-5.0) g/dL Disposition Clinical Impression: Transient cerebral ischemia Disposition: ADMITTED IP TO THIS HOSP Condition: Stable Is patient prescribed a controlled substance at d/c from ED?: No Referrals: Anil Elizabeth MD [Primary Care Provider] - 1-2 days Time of Disposition: 15:31
[2024-08-21] MEDS: SODIUM CHLORIDE 0.9% 500 ML 500 ML IV STA (13:25)
[2024-08-21 13:50] LABS: Basophils # (A) 0.1 k/uL (0-0.2); Basophils % (A) 1 %; Eosinophils # (A) 0.4 k/uL (0-0.7); Eosinophils % (A) 5 %; HCT 40.3 % (39.0-53.0); HGB 13.6 gm/dL (13.0-17.5); Lymphocytes # (A) 1.6 k/uL (1.0-4.8); Lymphocytes % (A) 22 %; MCHC 33.7 g/dL (31.0-37.0); MCV 92.1 fL (80.0-100.0); Mean Platelet Volume 6.9; Monocytes # (A) 0.4 k/uL (0-1.0); Monocytes % (A) 6 %; Neutrophils # (A) 4.6 k/uL (1.3-7.7); Neutrophils % (A) 64 %; Platelet Count 257 k/uL (150-450); RBC 4.37 m/uL (4.30-5.90); RDW 13.4 % (11.5-15.5); WBC 7.2 k/uL (3.8-10.6)
--- NOTE | 2024-08-21 13:59 | CT ---
EXAMINATION TYPE: CODE STROKE: CT brain wo contr CT DLP: Combined DLP 3.2 mGycm, Automated exposure control for dose reduction was used. DATE OF EXAM: 08/21/2024 1:51 PM COMPARISON: CT brain 06/22/2024, MRI brain 06/23/2024 CLINICAL INDICATION:Male, 79 years old with history of Neuro deficit, acute, stroke suspected, diffic ulty speaking x 1 hour TECHNIQUE: Brain: Multiple axial CT images of the brain were obtained without IV contrast. . Coronal and sagitta l reformats reviewed. FINDINGS: Brain: Extra-axial spaces: No abnormal extra-axial fluid collections. Ventricular system: Within normal limits Cerebral parenchyma: Cerebral atrophy. No acute intraparenchymal hemorrhage or mass effect. The carr -white junction is well differentiated. Remote lacunar infarct within the left basal ganglia. Scatter ed hypoattenuating areas are seen within the periventricular and subcortical white matter. Cerebellum: Unremarkable. Mass effect: No evidence of midline shift. Intracranial vasculature: Atherosclerotic calcifications of the intracranial vessels. Soft tissues: Normal. Calvarium/osseous structures: No depressed skull fracture. Paranasal sinuses and mastoid air cells: The right mastoid air cells are clear. Minimal opacification of the left mastoid air cells. Minimal mucosal thickening of the inferior bilateral maxillary sinuse s. Minimal opacification of the left posterior ethmoid sinus. The remaining paranasal sinuses are berta ar. Visualized orbits: Senile calcific scleral plaques are present. IMPRESSION: 1. No acute intracranial process. 2. Remote lacunar injuries along with nonspecific white matter changes likely secondary to chronic mi croangiopathy. [facility], , 08/21/2024 1:56 PM
[2024-08-21 14:03] LABS: ALT 32 U/L (4-49); African American GFR (CKD) 61 (>60 ml/min/1.73 sqM); Anion Gap 8 mmol/L; Blood Urea Nitrogen 26 mg/dL (9-20); Calcium 9.5 mg/dL (8.4-10.2); Carbon Dioxide 21 mmol/L (22-30); Chloride 110 mmol/L (98-107); Creatine Kinase 147 U/L (55-170); Glucose 97 mg/dL (74-99); Non-African American GFR(CKD) 53 (>60 ml/min/1.73 sqM); Sodium 139 mmol/L (137-145)
[2024-08-21 14:04] LABS: Potassium 5.4 mmol/L (3.5-5.1); Total Protein 7.9 g/dL (6.3-8.2)
[2024-08-21 14:05] LABS: AST 50 U/L (17-59)
[2024-08-21 14:06] LABS: Alkaline Phosphatase 75 U/L (38-126)
[2024-08-21 14:21] LABS: Prothrombin Time 10.7 sec (10.0-12.5)
--- NOTE | 2024-08-21 14:36 | CT ---
EXAMINATION TYPE: CT angio head neck DATE OF EXAM: 08/21/2024 COMPARISON: 06/22/2024 CLINICAL INDICATION: Male, 79 years old with history of Neuro deficit, acute, stroke suspected; PHH, difficulty speaking x 1 hour TECHNIQUE: CTA scan of the head and neck is performed without and with IV Contrast, patient injected with 120 mL of Isovue 370, axial images are obtained, coronal and sagittal reformatted images are re viewed. 3D reconstructed images are created on an independent workstation and reviewed. CT DLP: total 2023.[address] CTDI: mGy Automated exposure control for dose reduction was used. NASCET criteria was used in interpretation of this exam? FINDINGS: The brachiocephalic origins are widely patent and no significant stenosis. There is a heavily calcified eccentric plaque at the right carotid bifurcation resulting in a approxi mate 50-60% stenosis of the proximal right internal carotid artery. There is mild calcified plaque in the left carotid bifurcation with no significant stenosis. There is a focal heavily calcified plaque in the distal left vertebral artery resulting in a 50% sten osis. Intracranially, there is no sizable aneurysm, vascular malformation or segmental occlusion. There is calcification of the carotid siphons but no significant carotid siphon stenosis. IMPRESSION: 1. No significant interval change compared to the prior study. 2. Heavily calcified right carotid bifurcation plaque resulting in moderate proximal 50% stenosis. 3. Moderate to severe focal stenosis of the distal left ureter to artery resulting in approximately 5 0% stenosis of the distal left vertebral artery. 4. No definite occlusive disease, aneurysm sac or vascular malformation intracranially. [facility], Workstation: BE, 08/21/2024 2:33 PM
[2024-08-21 14:37] LABS: Partial Thromboplastin Time 21.3 sec (22.0-30.0)
[2024-08-21] MEDS: SODIUM CHLORIDE 0.9% 500 ML 500 ML IV ONE (14:46)
[2024-08-21] MEDS: ASPIRIN 325 MG TAB PO STA (14:46)
[2024-08-21] MEDS ORDERED: hydrALAZINE HCL 25 MG TAB PO PRN (15:28)
[2024-08-21] MEDS: SODIUM CHLORIDE 0.9% 1,000 ML IV SCH (15:59)
[2024-08-21] MEDS: HEPARIN SODIUM,PORCINE 5,000 UNIT/ML 1 ML VIAL SQ SCH (23:10)
--- NOTE | 2024-08-21 23:22 | P.HPIM ---
History of Present Illness H&P Date: 08/21/24 Chief Complaint: Expressive aphasia Patient is a 79-year-old male with known history of recent CVA with dysarthria which has since improved, hypertension, hyperlipidemia and ICA stenosis presents to ER with complaints of difficulty finding words. Symptoms lasted for about an hour and started getting better after coming to ER. Denied any complaints of weakness. No facial droop. Denied any blurry vision. No headache. Denied any fever or chills. No recent illnesses otherwise. Patient is currently taking aspirin Plavix and statins. He was seen by his neurologist Dr. Samson yesterday. Patient was recently was admitted to hospital due to acute CVA with dysarthria a nd unsteady gait and was discharged on 06/25/2024. Patient underwent loop recorder placement on 06/25/2024. MRI of the brain on 06/23/2024 showed acute/subacute CVA involving the left basal ganglia and left mcdaniel radiata. Nonspecific white matter changes. Trace left mastoid air cell effusions. Laboratory data showed WBC 7.2 hemoglobin 13.6 and platelets 257 sodium 139 potassium 5.4 chloride 110 bicarb is 21 BUN 26 and creatinine 1.28 Liver enzymes are not elevated. Troponin x 1 negative albumin 5.0. EKG showed sinus rhythm with heart rate 89 CT head showed no acute intracranial process. Remote lacunar injuries along with nonspecific white matter changes likely secondary to chronic micr oangiopathy. CT angiogram of the head and neck showed no significant interval change compared to prior study. Heavily calcified right carotid bifurcation plaque resulting in moderate proximal 50% stenosis. Moderate to severe focal stenosis of the left distal vertebral artery resulting in approximately 50% stenosis of the distal left vertebral artery. No definite occlusive disease. Aneurysmal sac or vascular malformation intracranially. Review of Systems Constitutional: Patient denies any fever or chills . No generalized weakness or weight loss. Abdomen: Patient denied nausea vomiting and diarrhea and abdominal pain. Cardiovascular: Patient denies any chest pain or short of breath no palpitations. Respiratory: patient denied any cough or sputum production. No shortness of breath Neurologic: Patient denied any numbness or tingling. no headache. Musculoskeletal: Patient denies any complaints of joint swelling or deformity. Skin: Negative Psychiatric: Negative Endocrine: No heat or cold intolerance. No recent weight gain. Genitourinary: No dysuria or hematuria. All other 14 point ROS negative except the above Past Medical History Past Medical History: CVA/TIA, Hyperlipidemia, Hypertension Additional Past Medical History / Comment(s): 69% blockage in ICA, History of Any Multi-Drug Resistant Organisms: None Reported Past Surgical History: Hernia Repair Past Anesthesia/Blood Transfusion Reactions: No Reported Reaction Past Psychological History: No Psychological Hx Reported Smoking Status: Never smoker Past Alcohol Use History: None Reported Past Drug Use History: None Reported - Past Family History Mother Additional Family Medical History / Comment(s): of brain tumour Medications and Allergies Home Medications Medication Instructions Recorded Confirmed Type Ascorbic Acid [Vitamin C] 500 mg PO DAILY 06/22/24 06/22/24 History Aspirin EC [Ecotrin Low Dose] 81 mg PO DAILY 06/22/24 06/22/24 History Montelukast [Singulair] 10 mg PO DAILY 06/22/24 06/22/24 History Multivitamins, Thera [Multivitamin 1 tab PO DAILY 06/22/24 06/22/24 History (formulary)] Vit C/E/Zn/Coppr/Lutein/Zeaxan 1 cap PO BID 06/22/24 06/22/24 History [Preservision Areds 2 Softgel] Clopidogrel [Plavix] 75 mg PO DAILY #90 tab 06/25/24 Rx Losartan [Cozaar] 50 mg PO DAILY #60 tab 06/25/24 Rx Rosuvastatin [Crestor] 40 mg PO DAILY #30 tab 06/25/24 Rx hydrALAZINE HCL [Apresoline] 25 mg PO QID PRN #90 tab 06/25/24 Rx Allergies Allergy/AdvReac Type Severity Reaction Status Date / Time No Known Allergies Allergy Verified 08/21/24 13:00 Physical Exam Vitals: Vital Signs Temp Pulse Pulse Resp BP BP BP 08/21/24 18:48 79 18 158/98 08/21/24 15:49 93 18 152/93 158/98 08/21/24 13:01 97.9 F 92 20 153/77 BP Pulse Ox 08/21/24 18:48 95 08/21/24 15:49 145/81 98 08/21/24 13:01 98 Intake and Output 08/21/24 08/21/24 08/21/24 06:59 14:59 22:59 Other: Weight 84.368 kg PHYSICAL EXAMINATION: Patient is lying in the bed comfortably, no acute distress, awake alert and oriented.. HEENT: Normocephalic. Neck is supple. Pupils reactive. Nostrils clear. Oral cavity is moist. Neck reveals no JVD, carotid bruits, or thyromegaly. CHEST EXAMINATION: Trachea is central. Symmetrical expansion. Lung howe clear to auscultation and percussion. CARDIAC: Normal S1, S2 with no gallops. No murmurs ABDOMEN: Soft. Bowel sounds normal. No organomegaly. No abdominal bruits. Extremities: reveal no edema. No clubbing or cyanosis Neurologically awake, alert, oriented x3 with well-coordinated movements. No focal deficits noted Skin: No rash or skin lesions. Psychiatric: Coperative. Nonsuicidal Musculoskeletal: No joint swelling or deformity. Normal range of motion. Results CBC & Chem 7: 08/21/24 13:26 08/21/24 13:26 Labs: Abnormal Lab Results - Last 24 Hours (Table) 08/21/24 08/21/24 Range/Units 13:26 13:26 APTT 21.3 L (22.0-30.0) sec Potassium 5.4 H (3.5-5.1) mmol/L Chloride 110 H (98-107) mmol/L Carbon Dioxide 21 L (22-30) mmol/L BUN 26 H (9-20) mg/dL Creatinine 1.28 H (0.66-1.25) mg/dL Thrombosis Risk Factor Assmnt - DVT/VTE Prophylaxis DVT/VTE Prophylaxis: Pharmacologic Prophylaxis ordered Assessment and Plan Assessment: Expressive aphasia likely due to TIA resolved now. History of recent CVA involving left basal ganglia and mcdaniel radiata in June 2024 with dysarthria and unsteady gait. Improved Status post loop recorder placement on 06/25/2024. Left ICA 50 to 60% stenosis Hypertension Hyperlipidemia DVT prophylaxis with heparin subcu Plan: Patient will be continued on telemonitoring. Continue with aspirin Plavix and statins. Continue with home blood pressure medications and neurology evaluation. Follow-up closely. Continue with neurochecks. Time with Patient: Greater than 30
[2024-08-22 07:01] LABS: African American GFR (CKD) 65 (>60 ml/min/1.73 sqM); Anion Gap 3 mmol/L; Blood Urea Nitrogen 22 mg/dL (9-20); Calcium 9.1 mg/dL (8.4-10.2); Carbon Dioxide 23 mmol/L (22-30); Chloride 112 mmol/L (98-107); Glucose 89 mg/dL (74-99); Non-African American GFR(CKD) 56 (>60 ml/min/1.73 sqM); Potassium 4.1 mmol/L (3.5-5.1); Sodium 138 mmol/L (137-145)
[2024-08-22] MEDS: LOSARTAN 50 MG TAB PO SCH (08:02)
[2024-08-22] MEDS: ATORVASTATIN 80 MG TAB PO SCH (08:02)
[2024-08-22] MEDS: CLOPIDOGREL 75 MG TAB PO SCH (08:03)
[2024-08-22] MEDS: ASPIRIN 325 MG TAB PO SCH (08:03)
[2024-08-22 12:59] LABS: Chol/HDL Ratio 2.47 Ratio; LDL Cholesterol,Calculated 39.5 mg/dL (0.0-131.0); VLDL Calculation 18.88 mg/dL (5.00-40.00)
--- NOTE | 2024-08-22 13:48 | MR ---
EXAMINATION TYPE: MR brain wo con DATE OF EXAM: 08/22/2024 1:36 PM COMPARISON: 06/23/2024. CLINICAL INDICATION: Male, 79 years old with history of Neuro deficit, acute, stroke suspected; PHH, Difficulty speaking and putting words together. TECHNIQUE: Multi planar, multi sequence imaging was performed through the brain including: T1, T2, In version recovery, Diffusion weighted imaging, and gradient echo imaging. No gadolinium was given. FINDINGS: Remote left basal ganglia injuries seen on 06/23/2024. Hemorrhage in the left posterior fro ntal lobe with surrounding gliosis also similar prior. Mild cerebral atrophy with proportional dilati on of ventricular system. Scattered foci of high T2 signal intensity are seen within the periventri cular white matter. Midline structures show no abnormality. Diffusion-weighted imaging shows no evide nce of restricted diffusion. The susceptibility weighted images do not reveal any evidence for micro- hemorrhage. The bone marrow signal is within normal limits. Paranasal sinuses and mastoid air cells: No significant paranasal sinus disease. High T2 signal withi n the left mastoid air cell Visualized orbits: Orbital contents are intact. IMPRESSION: 1. No evidence of intracranial mass or acute/subacute infarct. 2. Nonspecific white matter changes, likely secondary to small vessel ischemic disease. 3. Remote left basal ganglia injuries seen on 06/23/2024. 4. Trace left mastoid air cell effusion. Similar to prior. [facility], , 08/22/2024 1:46 PM
[2024-08-22] MEDS: amLODIPine 2.5 MG TAB PO SCH (17:18)
--- NOTE | 2024-08-22 17:36 | P.CRDCN ---
History of Present Illness Consult date: 08/22/24 History of present illness: HISTORY OF PRESENTING ILLNESS Patient is a 79-year-old with past medical history of recent CVA with dysarthria which improved, history of hypertension, dyslipidemia and ICA stenosis. He is also status post loop recorder. He presented to the hospital because of symptoms of increased gait instability and some dysarthria. On admission his initial workup including CT head was nonrevealing, CT angiogram showed moderate right and moderate left ICA stenosis in the range of 50%. He also had a brain MRI which did not show any new findings. 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 Hemoglobin 13, BUN 22, creatinine 1.2, LDL 39. REVIEW OF SYSTEMS 14 point review of system is negative except what is mentioned above in HPI. PHYSICAL EXAMINATION Vital signs reviewed. Head: Normocephalic. Eyes: Sclerae nonicteric. Neck: Brisk carotid upstroke, no jugular venous distention. Lungs: Clear to auscultation. Heart: Regular rate and rhythm, S1-S2, no S3, no murmur or rub. Abdomen: Soft nontender, positive bowel sounds. Extremities: No edema, intact distal pulses. Neuro: Alert, oritented, no focal deficits. Detailed neuro exam was not performed. 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 Status post loop recorder Essential hypertension Dyslipidemia PLAN Obtaining loop recorder interrogation. Recommend to follow-up in [facility] office on Saturday to see if patient had any atrial fibrillation or not. Continue current regimen of aspirin, Plavix, Lipitor, losartan 50 mg daily. Will add amlodipine 2.5 mg daily for elevated blood pressure. Recommend to monitor blood pressure at home. Patient is otherwise cleared from cardiac standpoint. Recommend outpatient follow-up. Please contact us in case of any question. Cardiology team will sign off Wyatt Valencia MD, FACC, RPVI Thank you for allowing [facility] to participate in t his patient's care. Feel free to reach out in case of any followup questions. Past Medical History Past Medical History: CVA/TIA, Hyperlipidemia, Hypertension Additional Past Medical History / Comment(s): 69% blockage in ICA, History of Any Multi-Drug Resistant Organisms: None Reported Past Surgical History: Hernia Repair Past Anesthesia/Blood Transfusion Reactions: No Reported Reaction Past Psychological History: No Psychological Hx Reported Smoking Status: Never smoker Past Alcohol Use History: None Reported Past Drug Use History: None Reported - Past Family History Mother Additional Family Medical History / Comment(s): of brain tumour Medications and Allergies Home Medications Medication Instructions Recorded Confirmed Type Aspirin EC [Ecotrin Low Dose] 81 mg PO DAILY 06/22/24 08/22/24 History Montelukast [Singulair] 10 mg PO DAILY 06/22/24 08/22/24 History Multivitamins, Thera [Multivitamin 1 tab PO DAILY 06/22/24 08/22/24 History (formulary)] Clopidogrel [Plavix] 75 mg PO DAILY #90 tab 06/25/24 08/22/24 Rx Rosuvastatin [Crestor] 40 mg PO DAILY #30 tab 06/25/24 08/22/24 Rx hydrALAZINE HCL [Apresoline] 25 mg PO QID PRN #90 tab 06/25/24 08/22/24 Rx Losartan [Cozaar] 50 mg PO DAILY PRN 08/22/24 08/22/24 History Allergies Allergy/AdvReac Type Severity Reaction Status Date / Time No Known Allergies Allergy Verified 08/22/24 08:27 Physical Exam Vitals: Vital Signs Temp Pulse Resp BP Pulse Ox 08/22/24 17:22 98.0 F 80 15 145/76 96 08/22/24 15:29 97.9 F 83 16 149/79 96 08/22/24 11:49 98.1 F 86 16 148/79 96 08/22/24 10:14 79 16 08/22/24 08:30 98.0 F 68 16 156/81 95 08/22/24 08:00 76 16 143/73 99 08/22/24 05:51 78 14 143/73 96 08/22/24 02:00 98.2 F 66 15 137/76 96 08/21/24 23:00 70 16 136/74 98 08/21/24 18:48 79 18 158/98 95 Intake and Output 08/22/24 08/22/24 08/22/24 06:59 14:59 22:59 Output Total 1050 Balance -1050 Output: Urine 1050 Results 08/21/24 13:26 08/22/24 06:22 Lipids 08/22/24 Range/Units 06:22 Triglycerides 94.40 (0.00-149.00) mg/dL Cholesterol 98.00 (0.00-200.00) mg/dL HDL Cholesterol 39.60 L (40.00-60.00) mg/dL Cholesterol/HDL Ratio 2.47 Ratio Comprehensive Metabolic Panel 08/22/24 Range/Units 06:22 Sodium 138 (137-145) mmol/L Potassium 4.1 (3.5-5.1) mmol/L Chloride 112 H (98-107) mmol/L Carbon Dioxide 23 (22-30) mmol/L BUN 22 H (9-20) mg/dL Creatinine 1.22 (0.66-1.25) mg/dL Glucose 89 (74-99) mg/dL Calcium 9.1 (8.4-10.2) mg/dL Current Medications Generic Name Dose Route Start Last Admin Trade Name Freq PRN Reason Stop Dose Admin Amlodipine Besylate 2.5 mg 08/22/24 16:00 08/22/24 17:18 Amlodipine 2.5 Mg Tab PO 2.5 mg DAILY HARLEEN Administration Aspirin 325 mg 08/22/24 09:00 08/22/24 08:03 Aspirin 325 Mg Tab PO 325 mg DAILY HARLEEN Administration Atorvastatin Calcium 80 mg 08/22/24 09:00 08/22/24 08:02 Atorvastatin 80 Mg Tab PO 80 mg DAILY HARLEEN Administration Clopidogrel Bisulfate 75 mg 08/22/24 09:00 08/22/24 08:03 Clopidogrel 75 Mg Tab PO 75 mg DAILY HARLEEN Administration Heparin Sodium (Porcine) 5,000 unit 08/22/24 00:00 08/22/24 15:27 Heparin Sodium,Porcine 5,000 Unit/Ml 1 Ml Vial SQ 5,000 unit Q8HR HARLEEN Administration Sodium Chloride 1,000 mls @ 100 mls/hr 08/21/24 15:30 08/22/24 11:48 Saline 0.9% IV 100 mls/hr .Q10H HARLEEN Administration Losartan Potassium 50 mg 08/22/24 09:00 08/22/24 08:02 Losartan 50 Mg Tab PO 50 mg DAILY HARLEEN Administration Intake and Output 08/22/24 08/22/24 08/22/24 06:59 14:59 22:59 Output Total 1050 Balance -1050 Output: Urine 1050 08/21/24 13:26 08/22/24 06:22
[2024-08-22 18:53] VITALS: BP 142/58; PULSE 75; RESP 17; TEMP 97.6
== END 2024-08-22 18:51 | disposition home or self-care (01) ==
LOC: EC 12:59 → 3SCARD 15:26
PROVIDERS: ADMIT Internal Medicine; ATTEND Internal Medicine
DX: R47.01 Aphasia (principal); I65.22 Occlusion and stenosis of left carotid artery; I65.02 Occlusion and stenosis of left vertebral artery; E78.5 Hyperlipidemia, unspecified; I10 Essential (primary) hypertension; Z79.82 Long term (current) use of aspirin; Z79.899 Other long term (current) drug therapy; Z86.73 Personal history of transient ischemic attack (TIA), and cerebral infarction without residual deficits; Z79.02 Long term (current) use of antithrombotics/antiplatelets; Z95.818 Presence of other cardiac implants and grafts
CPT/HCPCS: 96360; 96361; 96372 ×2; 99285; 36415; 93005; 80061; 80053; 80048; 82550; 84484; 85025; 85610; 85730; 70496; 70450; 70498; 70551; G0378 ×2; J1644 ×2; Q9967